=== PATIENT | female | born 1950 | race Caucasian/White ===

== ENCOUNTER 2017-02-27 04:59 | Inpatient (IN) | payer OTHER ==
[~2017-02-27] VITALS: Ht 170.2 cm; Wt 76.6 kg
[2017-02-27] MEDS ORDERED: MoRPHine SULFATE 4 MG/ML 1 ML CARP\\VIAL IV STA (05:22)
[2017-02-27] MEDS ORDERED: ONDANSETRON INJ 2 MG/ML 2 ML VIAL IV STA (05:22)
--- NOTE | 2017-02-27 05:24 | EMERGENCY ROOM VISIT NOTE ---
History Report prepared by Yifan: Saurabh Baird Under the Supervision of: Dr. Panfilo Gustafson D.O. First contact with patient: 05:07 Chief Complaint: ABDOMINAL PAIN Stated Complaint: SEVERE MID STOMACH PAIN History of Present Illness The patient is a 66 year old female who presents to the Emergency Room with complaints of constant epigastric abdominal pain that began Saturday night, just over one day prior to arrival. She rates her pain as a 7/10 in severity currently. The patient also notes that she has vomited multiple times secondary to her abdominal pain. She denies any history of abdominal issues or surgeries. 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 A total of ten systems were reviewed and were otherwise negative. Past Medical & Surgical Patient denies any past medical surgical history. Family History No pertinent family history secondary to age. Social History Smoking Status: Never Smoker Drug Use: none Marital Status: Housing Status: lives with significant other Occupation Status: unemployed Current/Historical Medications Scheduled Atorvastatin (Lipitor), 10 MG PO DAILY Losartan Potassium (Cozaar), 50 MG PO DAILY Omeprazole (Prilosec), 40 MG PO DAILY Allergies Coded Allergies: No Known Allergies (Unverified , 02/27/17) Physical Exam Vital Signs Date Time Temp Pulse Resp B/P (MAP) Pulse Ox O2 Delivery O2 Flow Rate FiO2 02/27/17 05:53 101 18 163/88 94 Room Air 02/27/17 05:38 100 02/27/17 05:33 105 20 171/101 93 Room Air 02/27/17 05:10 36.5 112 18 169/94 98 Room Air Physical Exam GENERAL: Awake, alert, well-appearing, in no distress HENT: Normocephalic, atraumatic. Oropharynx unremarkable. EYES: Normal conjunctiva. Sclera non-icteric. NECK: Supple. No nuchal rigidity. FROM. No JVD. RESPIRATORY: Clear to auscultation. CARDIAC: Regular rate, normal rhythm. Extremities warm and well perfused. Pulses equal. ABDOMEN: Soft, non-distended. With tenderness to palpation in the mid epigastrium. No rebound or guarding. No masses. NO abnormal aortic pulsations or masses. RECTAL: Deferred. MUSCULOSKELETAL: Chest examination reveals no tenderness. The back is symmetrical on inspection without obvious abnormality. There is no CVA tenderness to palpation. No joint edema. LOWER EXTREMITIES: Calves are equal size bilaterally and non-tender. No edema. No discoloration. NEURO: Normal sensorium. No sensory or motor deficits noted. SKIN: No rash or jaundice noted. Medical Decision & Procedures ER Provider Diagnostic Interpretation: X ray results as stated below per my interpretation and radiologist interpretation. Other radiology results as stated below per my review and radiologist interpretation CT ABDOMEN & PELVIS: Gallbladder appears distended with suspected wal thickening and pericholecystic inflammatory change. Correlate for cholecystitis. Infiltration/mild fluid in the right upper quadrant layers over right retroperitoneum. Suggest correlation with pancreatic enzyme to evaluate for acute pancreatitis. There is also biliary dilation suspected both intra-and extra hepatic. Although no calcified choledocholithiasis or calcified gall stones seen there is a suspected vague density in the gallbladder and CBD which may represent stones and/or sludge. Choledocholithiasis is within the differential. Consider ultrasound and/or MRCP, as indicated. Trace free fluid. Nonobstructive left renal stone. No ureteral calculus or hydronephrosis. Adrenal hyperplasia/questionable nodularity at left adrenal gland. Small adenoma may be present. No evidence for appendicitis. Hiatal hernia. Suspected atelectasis and/or scar. Correlate for mild infiltrate. Laboratory Results 02/27/17 05:20 Red Blood Count 4.86, Mean Corpuscular Volume 82.3, Mean Corpuscular Hemoglobin 27.6, Mean Corpuscular Hemoglobin Concent 33.5, Mean Platelet Volume 10.7, Neutrophils (%) (Auto) 88.2, Lymphocytes (%) (Auto) 5.2, Monocytes (%) (Auto) 6.2, Eosinophils (%) (Auto) 0.0, Basophils (%) (Auto) 0.1, Neutrophils # (Auto) 11.32, Lymphocytes # (Auto) 0.67, Monocytes # (Auto) 0.80, Eosinophils # (Auto) 0.00, Basophils # (Auto) 0.01 02/27/17 05:20 Test 02/27/17 05:14 02/27/17 05:20 Urine Color DK YELLOW Urine Appearance CLEAR (CLEAR) Urine pH 6.5 (4.5-7.5) Urine Specific [place] 1.033 (1.000-1.030) Urine Protein 2+ (NEG) Urine Glucose (UA) 2+ (NEG) Urine Ketones NEG (NEG) Urine Occult Blood 2+ (NEG) Urine Nitrite POS (NEG) Urine Bilirubin 3+ (NEG) Urine Urobilinogen NEG (NEG) Urine Leukocyte Esterase TRACE (NEG) Urine WBC (Auto) 1-5 /hpf (0-5) Urine RBC (Auto) >30 /hpf (0-4) Urine Hyaline Casts (Auto) 1-5 /lpf (0-5) Urine Epithelial Cells (Auto) 20-30 /lpf (0-5) Urine Bacteria (Auto) NEG (NEG) White Blood Count 12.84 K/uL (4.8-10.8) Red Blood Count 4.86 M/uL (4.2-5.4) Hemoglobin 13.4 g/dL (12.0-16.0) Hematocrit 40.0 % (37-47) Mean Corpuscular Volume 82.3 fL (80-100) Mean Corpuscular Hemoglobin 27.6 pg (25-34) Mean Corpuscular Hemoglobin Concent 33.5 g/dl (32-36) Platelet Count 365 K/uL (130-400) Mean Platelet Volume 10.7 fL (7.4-10.4) Neutrophils (%) (Auto) 88.2 % Lymphocytes (%) (Auto) 5.2 % Monocytes (%) (Auto) 6.2 % Eosinophils (%) (Auto) 0.0 % Basophils (%) (Auto) 0.1 % Neutrophils # (Auto) 11.32 K/uL (1.4-6.5) Lymphocytes # (Auto) 0.67 K/uL (1.2-3.4) Monocytes # (Auto) 0.80 K/uL (0.11-0.59) Eosinophils # (Auto) 0.00 K/uL (0-0.5) Basophils # (Auto) 0.01 K/uL (0-0.2) RDW Standard Deviation 44.1 fL (36.4-46.3) RDW Coefficient of Variation 14.6 % (11.5-14.5) Immature Granulocyte % (Auto) 0.3 % Immature Granulocyte # (Auto) 0.04 K/uL (0.00-0.02) Prothrombin Time 10.4 SECONDS (9.0-12.0) Prothromb Time International Ratio 1.0 (0.9-1.1) Anion Gap 11.0 mmol/L (3-11) Est Creatinine Clear Calc Drug Dose 52.2 ml/min Estimated GFR () 59.7 Estimated GFR (Non- 51.5 BUN/Creatinine Ratio 11.4 (10-20) Calcium Level 9.1 mg/dl (8.5-10.1) Total Bilirubin 3.3 mg/dl (0.2-1) Direct Bilirubin 2.5 mg/dl (0-0.2) Aspartate Amino Transf (AST/SGOT) 723 U/L (15-37) Alanine Aminotransferase (ALT/SGPT) 1278 U/L (12-78) Alkaline Phosphatase 988 U/L (45-117) Total Protein 7.8 gm/dl (6.4-8.2) Albumin 3.6 gm/dl (3.4-5.0) Lipase 14390 U/L (73-393) Laboratory results reviewed by me Medications Administered Medications (Trade) Dose Ordered Sig/Afshan Route Start Time Stop Time Status Last Admin Dose Admin Morphine Sulfate (MoRPHine SULFATE INJ) 4 mg NOW STAT IV 02/27/17 05:22 02/27/17 05:24 DC 02/27/17 05:30 4 MG Ondansetron HCl (Zofran Inj) 4 mg NOW STAT IV 02/27/17 05:22 02/27/17 05:24 DC 02/27/17 05:29 4 MG Piperacillin Sod/ Tazobactam Sod (Zosyn Iv) 4.5 gm NOW STAT IV 02/27/17 06:05 02/27/17 06:07 DC 02/27/17 06:05 4.5 GM Metronidazole (Flagyl / Nss) 500 mg NOW STAT IV 02/27/17 06:05 02/27/17 06:07 DC 02/27/17 06:05 500 MG Hydromorphone HCl (Dilaudid Inj) 1 mg NOW STAT IV 02/27/17 06:12 02/27/17 06:14 DC 02/27/17 06:31 1 MG ECG Indication: abdominal pain Rate (beats per minute): 103 Rhythm: sinus tachycardia Findings: no acute ischemic change, other (Normal interval, normal axis) ED Course 0514: The patient was evaluated in room B10. A complete history and physical exam was performed. 0522: Ordered Zofran 4 mg IV, Morphine Sulfate 4 mg IV. 0605: Ordered Zosyn 4.5 gm IV. 06: Ordered Dilaudid 1 mg IV. 0628: I discussed the case with Dr. Xochitl CALI Hospitalist, he will evaluate the patient for further treatment. Medical Decision Differential diagnosis includes: Gastritis, gastroenteritis, colitis, cholecystitis, AAA, and bowel obstruction. Patient given IV fluids, IV pain medicine IV nausea medicine IV antibiotics. Patient on reexamination complaints of 5 out of 10 midepigastric pain she clearly has a pancreatitis as well as transaminitis potential for gallbladder issue. Patient will be started on IV antibiotics and continued pain medicine and kept nothing by mouth. Case will be discussed with the hospitalist for admission with likely GI and surgical consultations. Consults Time Called: [phone] Consulting Physician: Dr. Xochitl CALI Hospitalist Returned Call: [phone] I discussed the case with Dr. Xochitl CALI Hospitalist, he will evaluate the patient for further treatment. Impression Primary Impression: Pancreatitis Additional Impressions: Transaminitis Hyperbilirubinemia Scribe Attestation The scribe's documentation has been prepared under my direction and personally reviewed by me in its entirety. I confirm that the note above accurately reflects all work, treatment, procedures, and medical decision making performed by me. Departure Information Dispostion Being Evaluated By Hospitalist Referrals Kimberlyn Granger PA-C (PCP) Patient Instructions My [facility] Problem Qualifiers
[2017-02-27 05:28] LABS: URINE APPEARANCE CLEAR (CLEAR); URINE COLOR DK YELLOW; URINE EPITHELIAL CELL AUTO 20-30 /lpf (0-5); URINE NITRITE POS (NEG); URINE PH 6.5 (4.5-7.5); URINE SPECIFIC GRAVITY 1.033 (1.000-1.030); UROBILINOGEN NEG (NEG); ZZUR CULT IF INDIC CLEAN CATCH NO
[2017-02-27 05:32] LABS: MANUAL MICROSCOPIC REQUIRED? NO; REVIEW REQ? NO; URINE BILIRUBIN 3+ (NEG)
[2017-02-27 05:33] LABS: BASO % 0.1 %; BASO ABS # 0.01 K/uL (0-0.2); COMPLETE YES; IG% 0.3 %; LYMPH % 5.2 %; LYMPH ABS # 0.67 K/uL (1.2-3.4); MEAN CELL VOLUME 82.3 fL (80-100); MEAN CORPUSCULAR HEMOGLOBIN 27.6 pg (25-34); MEAN CORPUSCULAR HGB CONC 33.5 g/dl (32-36); MEAN PLATELET VOLUME 10.7 fL (7.4-10.4); MONO % 6.2 %; NEUT % 88.2 %; PLATELET COUNT 365 K/uL (130-400); RED BLOOD COUNT 4.86 M/uL (4.2-5.4); WHITE BLOOD COUNT 12.84 K/uL (4.8-10.8)
[2017-02-27 05:41] LABS: PROTHROMBIN TIME (PATIENT) 10.4 SECONDS (9.0-12.0)
[2017-02-27 05:51] LABS: BUN/CREATININE RATIO 11.4 (10-20); CALCIUM 9.1 mg/dl (8.5-10.1); CREATININE 1.1 mg/dl (0.60-1.20); POTASSIUM 3.8 mmol/L (3.5-5.1)
[2017-02-27] MEDS ORDERED: PIPERACILLIN/TAZOBACTAM 4.5 GM/100ML D5W IV STA (06:05)
[2017-02-27] MEDS ORDERED: METRONIDAZOLE 500MG / 100ML NSS IV STA (06:05)
[2017-02-27] MEDS ORDERED: HYDROmorphone INJ 1 MG/ML SYR IV STA (06:12)
[2017-02-27] MEDS ORDERED: ATOR10TA82 PO (06:17)
[2017-02-27] MEDS ORDERED: OMEP40CA41 PO (06:17)
[2017-02-27] MEDS ORDERED: LOSA50TA6 PO (06:17)
[2017-02-27] MEDS ORDERED: ONDANSETRON INJ 2 MG/ML 2 ML VIAL IV PRN ×2 (06:45→10:00)
[2017-02-27] MEDS ORDERED: HYDROmorphone INJ 1 MG/ML SYR IV PRN (06:45)
--- NOTE | 2017-02-27 06:56 | History and Physical ---
History & Physical Date & Time of Service: Feb 27, 2017 at 06:44 Chief Complaint: Severe Mid Stomach Pain Primary Care Physician: Ihsan Sharp M.D. History of Present Illness Source: patient, spouse 66-year-old female with a past medical history of hypertension, GERD presented to the ER with complaints of abdominal pain which started about 2 days ago. She stated that her pain started Monday night, has been intermittent, 9 on 10 in severity. The pain is mainly in the mid abdominal area without any radiation. The patient stated that she has been experiencing intermittent abdominal pain for about a month now. Complains of nausea and several episodes of vomiting. Denies diarrhea, constipation, bright red bleeding per rectum or melena. Denies any fevers or chills. Denies any urinary complaints. Denies any chest pain, shortness of breath, palpitations, dizziness Past Medical/Surgical History Hypertension Reflux Family History Hypertension, diabetes Social History Smoking Status: Never Smoker Drug Use: none Marital Status: Occupational Status: unemployed Allergies Coded Allergies: No Known Allergies (Unverified , 02/27/17) Home Medications Scheduled Atorvastatin (Lipitor), 10 MG PO DAILY Losartan Potassium (Cozaar), 50 MG PO DAILY Omeprazole (Prilosec), 40 MG PO DAILY Review of Systems Constitutional: No fever, No chills Eyes: No worsening of vision ENT: No hearing loss Respiratory: No cough, No sputum, No shortness of breath Cardiovascular: No chest pain, No orthopnea Abdomen: + pain (mid abdominal area), + nausea, + vomiting, No diarrhea, No constipation Musculoskeletal: No joint pain Genitourinary - Female: No dysuria, No urinary frequency, No urinary urgency Neurologic: No memory loss Psychiatric: No depression symptoms Endocrine: No fatigue Hematologic / Lymphatic: No abnormal bleeding/bruising Integumentary: No rash Physical Exam Vital Signs Date Time Temp Pulse Resp B/P (MAP) Pulse Ox O2 Delivery O2 Flow Rate FiO2 02/27/17 06:31 102 20 160/82 95 Room Air 02/27/17 05:53 101 18 163/88 94 Room Air 02/27/17 05:38 100 02/27/17 05:33 105 20 171/101 93 Room Air 02/27/17 05:10 36.5 112 18 169/94 98 Room Air General Appearance: WD/WN, + mild distress Head: normocephalic Eyes: normal inspection ENT: hearing grossly normal Neck: supple Respiratory/Chest: chest non-tender, lungs clear, normal breath sounds, no respiratory distress, no accessory muscle use Cardiovascular: regular rate, rhythm Abdomen/GI: normal bowel sounds, soft Back: normal inspection Neurologic/Psych: alert, normal mood/affect, oriented x 3 Skin: normal color Diagnostics Laboratory Results Results Past 24 Hours Test 02/27/17 05:14 02/27/17 05:20 Range/Units Urine Color DK YELLOW Urine Appearance CLEAR CLEAR Urine pH 6.5 4.5-7.5 Urine Specific [place] 1.033 1.000-1.030 Urine Protein 2+ NEG Urine Glucose (UA) 2+ NEG Urine Ketones NEG NEG Urine Occult Blood 2+ NEG Urine Nitrite POS NEG Urine Bilirubin 3+ NEG Urine Urobilinogen NEG NEG Urine Leukocyte Esterase TRACE NEG Urine WBC (Auto) 1-5 0-5 /hpf Urine RBC (Auto) >30 0-4 /hpf Urine Hyaline Casts (Auto) 1-5 0-5 /lpf Urine Epithelial Cells (Auto) 20-30 0-5 /lpf Urine Bacteria (Auto) NEG NEG White Blood Count 12.84 4.8-10.8 K/uL Red Blood Count 4.86 4.2-5.4 M/uL Hemoglobin 13.4 12.0-16.0 g/dL Hematocrit 40.0 37-47 % Mean Corpuscular Volume 82.3 80-100 fL Mean Corpuscular Hemoglobin 27.6 25-34 pg Mean Corpuscular Hemoglobin Concent 33.5 32-36 g/dl Platelet Count 365 130-400 K/uL Mean Platelet Volume 10.7 7.4-10.4 fL Neutrophils (%) (Auto) 88.2 % Lymphocytes (%) (Auto) 5.2 % Monocytes (%) (Auto) 6.2 % Eosinophils (%) (Auto) 0.0 % Basophils (%) (Auto) 0.1 % Neutrophils # (Auto) 11.32 1.4-6.5 K/uL Lymphocytes # (Auto) 0.67 1.2-3.4 K/uL Monocytes # (Auto) 0.80 0.11-0.59 K/uL Eosinophils # (Auto) 0.00 0-0.5 K/uL Basophils # (Auto) 0.01 0-0.2 K/uL RDW Standard Deviation 44.1 36.4-46.3 fL RDW Coefficient of Variation 14.6 11.5-14.5 % Immature Granulocyte % (Auto) 0.3 % Immature Granulocyte # (Auto) 0.04 0.00-0.02 K/uL Prothrombin Time 10.4 9.0-12.0 SECONDS Prothromb Time International Ratio 1.0 0.9-1.1 Sodium Level 141 136-145 mmol/L Potassium Level 3.8 3.5-5.1 mmol/L Chloride Level 103 98-107 mmol/L Carbon Dioxide Level 27 21-32 mmol/L Anion Gap 11.0 3-11 mmol/L Blood Urea Nitrogen 13 7-18 mg/dl Creatinine 1.10 0.60-1.20 mg/dl Est Creatinine Clear Calc Drug Dose 52.2 ml/min Estimated GFR () 59.7 Estimated GFR (Non- 51.5 BUN/Creatinine Ratio 11.4 10-20 Random Glucose 174 70-99 mg/dl Calcium Level 9.1 8.5-10.1 mg/dl Total Bilirubin 3.3 0.2-1 mg/dl Direct Bilirubin 2.5 0-0.2 mg/dl Aspartate Amino Transf (AST/SGOT) 723 15-37 U/L Alanine Aminotransferase (ALT/SGPT) 1278 12-78 U/L Alkaline Phosphatase 988 45-117 U/L Total Protein 7.8 6.4-8.2 gm/dl Albumin 3.6 3.4-5.0 gm/dl Lipase 47732 73-393 U/L Diagnostic Radiology Gallbladder appears distended with suspected wal thickening and pericholecystic inflammatory change. Correlate for cholecystitis. Infiltration/mild fluid in the right upper quadrant layers over right retroperitoneum. Suggest correlation with pancreatic enzyme to evaluate for acute pancreatitis. There is also biliary dilation suspected both intra-and extra hepatic. Although no calcified choledocholithiasis or calcified gall stones seen there is a suspected vague density in the gallbladder and CBD which may represent stones and/or sludge. Choledocholithiasis is within the differential. Consider ultrasound and/or MRCP, as indicated. Trace free fluid. Nonobstructive left renal stone. No ureteral calculus or hydronephrosis. Adrenal hyperplasia/questionable nodularity at left adrenal gland. Small adenoma may be present. No evidence for appendicitis. Hiatal hernia. Suspected atelectasis and/or scar. Correlate for mild infiltrate. EKG Sinus tachycardia Impression Assessment and Plan 66-year-old female with a past medical history of hypertension, GERD presented to the ER with complaints of abdominal pain which started about 2 days ago. Abdominal pain has been intermittent for about a month now. Associated with nausea and vomiting. Acute cholecystitis: - CT scan suggestive of acute cholecystitis with intrahepatic and extrahepatic biliary dilation and pancreatitis - Nothing by mouth - Continue IV fluids - Unasyn - Consult general surgery. [place]itis : [place] [address], trend lipases daily - Nothing by mouth - Continue IV fluids, LR at 100 mls/hr - Pain control with Dilaudid as needed - Gastroenterology consult Hypertension: Losartan currently held Hyperlipidemia: Atorvastatin currently held DVT prophylaxis -SCDs - Chemical anticoagulation currently held in anticipation of surgical procedure Full code Disposition: Admitted to [facility] Level of Care Med/Surg Resuscitation Status FULL RESUSCITATION VTE Prophylaxis VTE Risk Assessment Done? Y/N: Yes Risk Level: Moderate Given or contraindicated: SCD's Resident Tracking Resident Involvement: Resident Care Provided Care Provided: Adult Hospital Medicine
--- NOTE | 2017-02-27 06:57 | Progress Note ---
Progress Note Date of Service Feb 27, 2017. Progress Note Addendum to resident: Pt seen/examined independently and plan/orders formulated with resident 66 y/o F who denies a significant med history presenting with acute, persistent upper abdominal pain. One episode of vomiting after taking PO analgesics. CT obtained in ER consistent with cholecystitis, pancreatitis and dilated CBD. OE AAO x 3 S1,2 R CTAB + upper quadrant tenderness No CCE P: IVF, Narcotics, NPO, antibiotics Consult placed to gen surgery and GI
--- NOTE | 2017-02-27 07:35 | DIAGNOSTIC IMAGING REPORT ---
ABDOMEN AND PELVIS CT WITHOUT CONTRAST CT DOSE: 918.20 mGy.cm HISTORY: Epigastric pain TECHNIQUE: Multiaxial CT images of the abdomen and pelvis were performed without the use of intravenous and oral contrast according to the standard department stone protocol. COMPARISON STUDY: None. FINDINGS: Moderate hiatus hernia. Bibasilar densities are nonspecific but favor atelectasis. No hepatic or splenic masses. Mild peripancreatic inflammatory change consistent with acute pancreatitis. There are 2 focal areas of increased density at the distal common bile duct which measure up to 8 mm. These are consistent with distal common bile duct stones. There is associated intra and extrahepatic bile duct dilatation with the common bile duct measuring up to 14 mm. The gallbladder is distended and there is mild gallbladder wall thickening. There is a small amount of pericholecystic fluid/inflammatory change. Probable small stones/sludge within the gallbladder. Mild thickening within the left adrenal gland. Small stone within the left kidney. Normal right kidney. No hydronephrosis. Normal bladder, uterus, and ovaries. No evidence for bowel obstruction. A few colonic diverticula. Normal appendix. IMPRESSION: 1. Distal common bile duct stones with associated intra and hepatic bile duct dilatation. 2. Mild acute pancreatitis. 3. There appear to be a few small stones/sludge within the gallbladder. The gallbladder to mildly distended and there is mild gallbladder wall thickening with pericholecystic inflammatory change/fluid. This may also represent an acute cholecystitis. Electronically signed by: Juan Daniel Orosco M.D. 02/27/2017 7:34 AM Dictated Date/Time: 02/27/2017 7:28 AM
[2017-02-27 07:54] VITALS: BP 148/76; PULSE 98; TEMP 36.8; O2SAT 91
[2017-02-27] MEDS: LACTATED RINGER'S 1000ML 1,000 ML IV SCH ×4 (09:52→21:04)
[2017-02-27] MEDS ORDERED: SODIUM CHLORIDE 0.9% 1000ML 1,000 ML IV SCH (09:57)
[2017-02-27] MEDS ORDERED: HYDR-5688 PO (09:59)
[2017-02-27] MEDS ORDERED: HYDROCODONE/ACETAMOPHEN 5/325MG TAB PO PRN ×2 (10:00)
--- NOTE | 2017-02-27 10:29 | Surgery Consultation ---
Consultation Date of Consultation: Feb 27, 2017. Attending Physician: Сергей Leung M.D. History of Present Illness 2 day history of epigastric abdominal pain and nausea with emesis. has not been feeling that great overall for almost 1 month now. no weightloss/fever etc...actually feeling better at the moment of exam Past Medical/Surgical History Medical Problems: (1) Hyperbilirubinemia Status: Acute (2) Pancreatitis Status: Acute (3) Transaminitis Status: Acute Social History Smoking Status: Never Smoker Drug Use: none Marital Status: Housing Status: lives with significant other Occupation Status: unemployed Allergies Coded Allergies: No Known Allergies (Unverified , 02/27/17) Home Medications Scheduled Atorvastatin (Lipitor), 10 MG PO DAILY Losartan Potassium (Cozaar), 50 MG PO DAILY Omeprazole (Prilosec), 40 MG PO DAILY Scheduled PRN Hydrocodone/Acetaminophen 5MG/325MG ([place] 5MG/325MG), 1-2 TABLETS PO Q4 PRN for Pain Current Inpatient Medications Current Inpatient Medications Medications (Trade) Dose Ordered Sig/Afshan Route Start Time Stop Time Status Last Admin Dose Admin Acetaminophen (Tylenol Tab) 650 mg Q4H PRN PO 02/27/17 06:45 03/29/17 06:44 Ondansetron HCl (Zofran Inj) 4 mg Q6H PRN IV 02/27/17 06:45 03/29/17 06:44 Ampicillin Sodium/ Sulbactam Sodium 1500 mg/Sodium Chloride 104 ml @ 200 mls/hr Q6H IV 02/27/17 12:00 03/09/17 11:59 Lactated Ringer's 1,000 ml @ 100 mls/hr Q10H IV 02/27/17 06:45 03/29/17 06:44 02/27/17 09:52 100 MLS/HR Hydromorphone HCl (Dilaudid Inj) 1 mg Q4H PRN IV 02/27/17 06:45 03/13/17 06:44 Review of Systems Abdomen: + pain, + nausea, + vomiting Physical Exam Date Time Temp Pulse Resp B/P (MAP) Pulse Ox O2 Delivery O2 Flow Rate FiO2 02/27/17 07:54 36.8 98 18 148/76 (100) 91 Room Air 02/27/17 07:26 98 18 139/79 97 6/12/17 06:49 102 02/27/17 06:31 102 20 160/82 95 Room Air 02/27/17 05:53 101 18 163/88 94 Room Air 02/27/17 05:38 100 02/27/17 05:33 105 20 171/101 93 Room Air 02/27/17 05:10 36.5 112 18 169/94 98 Room Air General Appearance: no apparent distress Head: normocephalic, atraumatic Eyes: normal inspection, EOMI ENT: hearing grossly normal Neck: supple, no JVD Respiratory/Chest: no respiratory distress, no accessory muscle use Abdomen/GI: soft, + pertinent finding (mild epigastric and RUQ ttp. ) Neurologic/Psych: alert, oriented x 3 Skin: normal color, warm/dry Laboratory Results Last 24 Hours Test 02/27/17 05:14 02/27/17 05:20 Urine Color DK YELLOW Urine Appearance CLEAR Urine pH 6.5 Urine Specific [place] 1.033 Urine Protein 2+ Urine Glucose (UA) 2+ Urine Ketones NEG Urine Occult Blood 2+ Urine Nitrite POS Urine Bilirubin 3+ Urine Urobilinogen NEG Urine Leukocyte Esterase TRACE Urine WBC (Auto) 1-5 /hpf Urine RBC (Auto) >30 /hpf Urine Hyaline Casts (Auto) 1-5 /lpf Urine Epithelial Cells (Auto) 20-30 /lpf Urine Bacteria (Auto) NEG White Blood Count 12.84 K/uL Red Blood Count 4.86 M/uL Hemoglobin 13.4 g/dL Hematocrit 40.0 % Mean Corpuscular Volume 82.3 fL Mean Corpuscular Hemoglobin 27.6 pg Mean Corpuscular Hemoglobin Concent 33.5 g/dl Platelet Count 365 K/uL Mean Platelet Volume 10.7 fL Neutrophils (%) (Auto) 88.2 % Lymphocytes (%) (Auto) 5.2 % Monocytes (%) (Auto) 6.2 % Eosinophils (%) (Auto) 0.0 % Basophils (%) (Auto) 0.1 % Neutrophils # (Auto) 11.32 K/uL Lymphocytes # (Auto) 0.67 K/uL Monocytes # (Auto) 0.80 K/uL Eosinophils # (Auto) 0.00 K/uL Basophils # (Auto) 0.01 K/uL RDW Standard Deviation 44.1 fL RDW Coefficient of Variation 14.6 % Immature Granulocyte % (Auto) 0.3 % Immature Granulocyte # (Auto) 0.04 K/uL Prothrombin Time 10.4 SECONDS Prothromb Time International Ratio 1.0 Sodium Level 141 mmol/L Potassium Level 3.8 mmol/L Chloride Level 103 mmol/L Carbon Dioxide Level 27 mmol/L Anion Gap 11.0 mmol/L Blood Urea Nitrogen 13 mg/dl Creatinine 1.10 mg/dl Est Creatinine Clear Calc Drug Dose 52.2 ml/min Estimated GFR () 59.7 Estimated GFR (Non- 51.5 BUN/Creatinine Ratio 11.4 Random Glucose 174 mg/dl Calcium Level 9.1 mg/dl Total Bilirubin 3.3 mg/dl Direct Bilirubin 2.5 mg/dl Aspartate Amino Transf (AST/SGOT) 723 U/L Alanine Aminotransferase (ALT/SGPT) 1278 U/L Alkaline Phosphatase 988 U/L Total Protein 7.8 gm/dl Albumin 3.6 gm/dl Lipase 07812 U/L Assessment & Plan 1. gallstone pancreatitis with cholecystitis and elevated LFT's. pt stable lipase over 13,000 rec lap idalmis this admission NPO/IVF/supportive care follow LFT's/pancreatic enzymes will plan lap idalmis later in week after ERCP will follow along closely.
[2017-02-27 11:14] VITALS: BP 148/76; PULSE 98; TEMP 36.8; O2SAT 91; Ht 170.2 cm; Wt 76.6 kg
--- NOTE | 2017-02-27 12:38 | Gastrointestinal Consultation ---
Gastrointestinal Consultation Date of Consultation: Feb 27, 2017 Attending Physician: Dr. Leung (consult from Dr. Carias) Consulting Physician: Dr. Denise Cancino Reason for Consultation: Acute pancreatitis History of Present Illness Patient is a 66 year old female patient of Dr. Sharp/Alma Granger PA-C who presented to [facility] ED yesterday for abdominal pain. GI is consulted for acute pancreatitis. Ms. Benavides carries a hx of GERD, HTN, Hyperlipidemia. 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 In the past month, she had intermittent episodes of epigastric pain, lasting up to a day long. On Monday, she ate pizza and cake for supper. That night, she began with mid abdomen pain that persisted and worsened through yesterday. With the pain, she has had nausea/vomiting and dry heaving. She denies any fevers, chills, jaundice, icterus, dark urine or linda colored stools. On arrival, lipase was elevated at 13,34, AST 723, ALT 1278, ALk Phos 988. CT scan suggestive of acute cholecystitis, mild pancreatitis, CBD stones and dilation to 14mm. She is being covered with Unasyn 1500mg Q 6hrs. She has been afebrile. Past Medical/Surgical History Medical Problems: (1) Hyperbilirubinemia Status: Acute (2) Pancreatitis Status: Acute (3) Transaminitis Status: Acute Past Medical History: 1. GERD 2. HTN 3. Hyperlipidemia Past Surgical History: No prior surgeries. Social History Smoking Status: Never Smoker Drug Use: none Marital Status: Housing Status: lives with significant other Occupation Status: unemployed Allergies Coded Allergies: No Known Allergies (Unverified , 02/27/17) Current Medications Home Meds and Scripts Medications Dose Route/Sig Max Daily Dose Days Date Category [place] 5MG/325MG (Acetaminophen/Hydrocodone Bitart) Tab 1-2 Tablets PO Q4 PRN 3 02/27/17 Rx Cozaar (Losartan Potassium) 50 Mg Tab 50 Mg PO DAILY 02/27/17 Reported Prilosec (Omeprazole) 40 Mg Cap 40 Mg PO DAILY 02/27/17 Reported Lipitor (Atorvastatin Calcium) 10 Mg Tab 10 Mg PO DAILY 02/27/17 Reported Review of Systems Constitutional: No fever, No chills, No sweats, No weight loss, No weakness Eyes: No eye pain, No redness ENT: No sore throat, No trouble swallowing, No pain on swallowing Respiratory: No cough, No wheezing, No shortness of breath, No dyspnea on exertion Cardiac: No chest pain, No edema, No palpitations Abdomen: + see HPI, + pain, + nausea, + vomiting, No diarrhea, No constipation , No GI bleeding, No dysphagia, No odynophagia, No acolic stools, No jaundice, No dark urine Neuro: No memory loss, No weakness, No numbness/tingling, No vertigo, No balance problems Psych: No depression symptoms, No anxiety, No insomnia Heme: No abnormal bleeding/bruising, No night sweats Endo: No fatigue, No excessive thirst, No excessive urination Skin: No rash, No itch, No new/changing skin lesions, No jaundice Physical Exam Date Time Temp Pulse Resp B/P (MAP) Pulse Ox O2 Delivery O2 Flow Rate FiO2 02/27/17 11:14 36.8 98 18 148/76 91 Room Air 02/27/17 07:54 36.8 98 18 148/76 (100) 91 Room Air 02/27/17 07:26 98 18 139/79 97 02/27/17 06:49 102 02/27/17 06:31 102 20 160/82 95 Room Air 02/27/17 05:53 101 18 163/88 94 Room Air 02/27/17 05:38 100 02/27/17 05:33 105 20 171/101 93 Room Air 02/27/17 05:10 36.5 112 18 169/94 98 Room Air General Appearance: no apparent distress Eyes: normal inspection, EOMI Neck: supple, no adenopathy, thyroid normal Respiratory/Chest: chest non-tender, lungs clear, normal breath sounds, no accessory muscle use Cardiovascular: regular rate, rhythm, no JVD, no murmur Abdomen: normal bowel sounds, soft, no organomegaly, + tenderness (moderate epigastric tenderness) Extremities: normal inspection, no pedal edema, normal capillary refill Neurologic/Psych: alert, normal mood/affect, oriented x 3 Skin: normal color, no jaundice, warm/dry, no rash Laboratory Results Last 24 Hours Test 02/27/17 05:14 02/27/17 05:20 Urine Color DK YELLOW Urine Appearance CLEAR Urine pH 6.5 Urine Specific [place] 1.033 Urine Protein 2+ Urine Glucose (UA) 2+ Urine Ketones NEG Urine Occult Blood 2+ Urine Nitrite POS Urine Bilirubin 3+ Urine Urobilinogen NEG Urine Leukocyte Esterase TRACE Urine WBC (Auto) 1-5 /hpf Urine RBC (Auto) >30 /hpf Urine Hyaline Casts (Auto) 1-5 /lpf Urine Epithelial Cells (Auto) 20-30 /lpf Urine Bacteria (Auto) NEG White Blood Count 12.84 K/uL Red Blood Count 4.86 M/uL Hemoglobin 13.4 g/dL Hematocrit 40.0 % Mean Corpuscular Volume 82.3 fL Mean Corpuscular Hemoglobin 27.6 pg Mean Corpuscular Hemoglobin Concent 33.5 g/dl Platelet Count 365 K/uL Mean Platelet Volume 10.7 fL Neutrophils (%) (Auto) 88.2 % Lymphocytes (%) (Auto) 5.2 % Monocytes (%) (Auto) 6.2 % Eosinophils (%) (Auto) 0.0 % Basophils (%) (Auto) 0.1 % Neutrophils # (Auto) 11.32 K/uL Lymphocytes # (Auto) 0.67 K/uL Monocytes # (Auto) 0.80 K/uL Eosinophils # (Auto) 0.00 K/uL Basophils # (Auto) 0.01 K/uL RDW Standard Deviation 44.1 fL RDW Coefficient of Variation 14.6 % Immature Granulocyte % (Auto) 0.3 % Immature Granulocyte # (Auto) 0.04 K/uL Prothrombin Time 10.4 SECONDS Prothromb Time International Ratio 1.0 Sodium Level 141 mmol/L Potassium Level 3.8 mmol/L Chloride Level 103 mmol/L Carbon Dioxide Level 27 mmol/L Anion Gap 11.0 mmol/L Blood Urea Nitrogen 13 mg/dl Creatinine 1.10 mg/dl Est Creatinine Clear Calc Drug Dose 52.2 ml/min Estimated GFR () 59.7 Estimated GFR (Non- 51.5 BUN/Creatinine Ratio 11.4 Random Glucose 174 mg/dl Calcium Level 9.1 mg/dl Total Bilirubin 3.3 mg/dl Direct Bilirubin 2.5 mg/dl Aspartate Amino Transf (AST/SGOT) 723 U/L Alanine Aminotransferase (ALT/SGPT) 1278 U/L Alkaline Phosphatase 988 U/L Total Protein 7.8 gm/dl Albumin 3.6 gm/dl Lipase 06148 U/L Impression Patient is a 66 year old female with acute gallstone pancreatitis, choledocholithiasis. She has mild leukocytosis, suggestive of early cholangitis though does not have any other signs of infection. Plan 1. Agree with antibiotic coverage of cholangitis. 2. LR at 250cc/hr. 3. NPO except water po today. NPO after midnight. 4. ERCP discussed in detail including risks of perforation, pancreatitis. Though pt tells me that she is afraid of medical procedures, she has decided to go forward with the ERCP which is planned for tomorrow morning by Dr. Cancino. I saw and evalauted the patient with Ms. Lobo. She presented with gallstone pancreatitis, stones in CBD on CT scan. PE : mild icturus, no distress Impression: Gallstone pancreatitits, will plan for ERCP with gallstone extraction and possible stent placement. We have discussed the risks (bleeding , infection, perforation, pain, failed cannulation and need for f/u procedures) Plan ERCP arranged for monday Continue broad spectrum abx Contineu IV hydration Surgical consulation for cholecystectomy
[2017-02-27] MEDS: AMPICILLIN/SULBACTAM SOD INJ 1,500 MG in SODIUM CHLORIDE 0.9% 100ML 100 ML IV SCH ×3 (12:51→23:41)
--- NOTE | 2017-02-27 12:57 | Anesthesiology Progress Note ---
Anesthesia Progress Note Date of Service Feb 27, 2017. Progress Notes Pt is scheduled for ERCP on 02/28/17. Pt is 66F h/o HTN and GERD. She presented with abdominal pain and was found to have acute pancreatitis. Pt has improved. Her labwork and EKG have been reviewed. Pt is an acceptable candidate for general anesthesia. Consent was obtained from the pt. All questions/concerns were addressed.
--- NOTE | 2017-02-27 13:15 | Hospitalist Progress Note ---
Hospitalist Progress Note Date of Service Feb 27, 2017. (Anjana Hill PA-C) Subjective Pt evaluation today including: conversation w/ patient, physical exam, chart review, lab review, review of studies Pain: Minimal upper abdominal PO Intake: NPO Voiding: no voiding problems The patient was seen and examined this morning. Pt reports doing better since this morning. She is NPO but was told is allowed to have sips of water per Gen Surg. She denies nausea and vomiting. Last time she ate was on monday night. Additional Comments: ROS: 6 point ROS reviewed and otherwise negative. (Anjana Hill PA-C) Objective Vital Signs Date Time Temp Pulse Resp B/P (MAP) Pulse Ox O2 Delivery O2 Flow Rate FiO2 02/27/17 11:14 36.8 98 18 148/76 91 Room Air 02/27/17 07:54 36.8 98 18 148/76 (100) 91 Room Air 02/27/17 07:26 98 18 139/79 97 02/27/17 06:49 102 02/27/17 06:31 102 20 160/82 95 Room Air 02/27/17 05:53 101 18 163/88 94 Room Air 02/27/17 05:38 100 02/27/17 05:33 105 20 171/101 93 Room Air 02/27/17 05:10 36.5 112 18 169/94 98 Room Air (Anjana Hill PA-C) Physical Exam General Appearance: WD/WN, no apparent distress, + pertinent finding (appears a little anxious) Eyes: PERRL, EOMI ENT: hearing grossly normal, pharynx normal Neck: supple, no JVD Respiratory/Chest: no respiratory distress, no accessory muscle use, + pertinent finding (breath sounds slightly diminished at bases. No wheezing, rales or rhonchi.) Cardiovascular: regular rate, rhythm, no JVD, no murmur Abdomen: soft, no organomegaly, + pertinent finding (hypoactive bowel sounds, mild tenderness with palpation in the epigastric region, no rebound tenderness or guarding) Extremities: non-tender, normal inspection, no pedal edema, no calf tenderness Neurologic/Psychiatric: alert, normal mood/affect, oriented x 3 Skin: normal color, warm/dry (Anjana Hill PA-C) Laboratory Results Last 24 Hours Test 02/27/17 05:14 02/27/17 05:20 Urine Color DK YELLOW Urine Appearance CLEAR Urine pH 6.5 Urine Specific [place] 1.033 Urine Protein 2+ Urine Glucose (UA) 2+ Urine Ketones NEG Urine Occult Blood 2+ Urine Nitrite POS Urine Bilirubin 3+ Urine Urobilinogen NEG Urine Leukocyte Esterase TRACE Urine WBC (Auto) 1-5 /hpf Urine RBC (Auto) >30 /hpf Urine Hyaline Casts (Auto) 1-5 /lpf Urine Epithelial Cells (Auto) 20-30 /lpf Urine Bacteria (Auto) NEG White Blood Count 12.84 K/uL Red Blood Count 4.86 M/uL Hemoglobin 13.4 g/dL Hematocrit 40.0 % Mean Corpuscular Volume 82.3 fL Mean Corpuscular Hemoglobin 27.6 pg Mean Corpuscular Hemoglobin Concent 33.5 g/dl Platelet Count 365 K/uL Mean Platelet Volume 10.7 fL Neutrophils (%) (Auto) 88.2 % Lymphocytes (%) (Auto) 5.2 % Monocytes (%) (Auto) 6.2 % Eosinophils (%) (Auto) 0.0 % Basophils (%) (Auto) 0.1 % Neutrophils # (Auto) 11.32 K/uL Lymphocytes # (Auto) 0.67 K/uL Monocytes # (Auto) 0.80 K/uL Eosinophils # (Auto) 0.00 K/uL Basophils # (Auto) 0.01 K/uL RDW Standard Deviation 44.1 fL RDW Coefficient of Variation 14.6 % Immature Granulocyte % (Auto) 0.3 % Immature Granulocyte # (Auto) 0.04 K/uL Prothrombin Time 10.4 SECONDS Prothromb Time International Ratio 1.0 Sodium Level 141 mmol/L Potassium Level 3.8 mmol/L Chloride Level 103 mmol/L Carbon Dioxide Level 27 mmol/L Anion Gap 11.0 mmol/L Blood Urea Nitrogen 13 mg/dl Creatinine 1.10 mg/dl Est Creatinine Clear Calc Drug Dose 52.2 ml/min Estimated GFR () 59.7 Estimated GFR (Non- 51.5 BUN/Creatinine Ratio 11.4 Random Glucose 174 mg/dl Calcium Level 9.1 mg/dl Total Bilirubin 3.3 mg/dl Direct Bilirubin 2.5 mg/dl Aspartate Amino Transf (AST/SGOT) 723 U/L Alanine Aminotransferase (ALT/SGPT) 1278 U/L Alkaline Phosphatase 988 U/L Total Protein 7.8 gm/dl Albumin 3.6 gm/dl Lipase 74712 U/L (Anjana Hill PA-C) Assessment and Plan 66yo F with PMHx of hypertension, GERD presented to the ER with complaints of abdominal pain which started about 2 days ago. Abdominal pain has been intermittent for about a month now. Associated with nausea and vomiting. Found to have acute cholecystitis and pancreatitis. Acute cholecystitis and pancreatitis - CT scan suggestive of acute cholecystitis with intrahepatic and extrahepatic biliary dilation and pancreatitis - GI and Gen surg consulted - NPO for ERCP tomorrow, will plan for cholecystectomy later in the week. - Lactated ringers running at 250mL/hr x 4 hours, then decrease to 100ml/hr for maintenance fluids again - Unasyn on board, [place] - [place] [id number], trend with am labs - Continue analgesia with Dilaudid 1 mg Q4H prn Hypertension: - Losartan 10 mg restarted today Hyperlipidemia: - Cont atorvastatin 20 mg QAM DVT prophylaxis -SCDs - Chemical anticoagulation currently held in anticipation of surgical procedure CODE STATUS: Full code Disposition: From home, ERCP tomorrow, cholecystectomy later this week, d/c in 2 days? (Anjana Hill PA-C) MATEO Physician Supervision Note: I interviewed and examined the patient. Discussed with Melissa Hill and agree with findings and plan as documented in the note. Any exceptions or clarifications are listed here: None pt with likely gall stone pancreatitis for possible procedure 02/28 symptoms are improved with parenteral pain meds and IVF vitals stable abd with soft , hypoactive bowel sounds, some ruq tenderness continue unasyn, surgery is evaluating for cholecystectomy Documented By: Yamil Finnegan (Yamil Finnegan M.D.)
[2017-02-27 15:25] VITALS: BP 157/78; PULSE 83; TEMP 36.7; O2SAT 95
[2017-02-27] MEDS: ACETAMINOPHEN 325 MG TAB PO PRN (16:34)
[2017-02-27] MEDS: LOSARTAN POTASSIUM 50 MG TAB PO SCH (18:04)
[2017-02-27] MEDS ORDERED: FAMOTIDINE IV INJ 20 MG in DEXTROSE 5% 100ML 100 ML IV SCH (21:30)
[2017-02-27 23:03] VITALS: BP 164/77; PULSE 82; TEMP 37; O2SAT 91
[2017-02-28] MEDS ORDERED: NURSING VERBAL MED ORDER ONE ×2 (00:15→22:00)
[2017-02-28] MEDS: LACTATED RINGER'S 1000ML 1,000 ML IV SCH ×3 (02:37→22:25)
[2017-02-28 03:18] VITALS: BP 160/76; PULSE 97; TEMP 37.3; O2SAT 94
[2017-02-28] MEDS: AMPICILLIN/SULBACTAM SOD INJ 1,500 MG in SODIUM CHLORIDE 0.9% 100ML 100 ML IV SCH ×4 (05:37→23:59)
[2017-02-28] MEDS ORDERED: EpHEDrine SULFATE INJ 50 MG/ML AMP IV PRN (06:45)
[2017-02-28] MEDS ORDERED: ATROPINE SULFATE 0.1 MG/ML 5ML SYR IV PRN (06:45)
[2017-02-28] MEDS ORDERED: ONDANSETRON INJ 2 MG/ML 2 ML VIAL IV PRN (06:45)
[2017-02-28] MEDS ORDERED: FENTANYL CITRATE INJ 50 MCG/1 ML 2 ML VIAL IV PRN (06:45)
[2017-02-28] MEDS ORDERED: INDOMETHACIN 50 MG SUPP PR ONE ×2 (06:51→07:15)
[2017-02-28] MEDS ORDERED: SUCCINYLCHOLINE CHLORIDE 20 MG/ML 10 ML VIAL IV ONE (07:03)
[2017-02-28] MEDS ORDERED: MIDAZOLAM HCL 1 MG/ML 2ML VIAL ONE (07:03)
[2017-02-28] MEDS ORDERED: LIDOCAINE HCL 2% 2 ML VIAL (20MG/ML) ONE (07:03)
[2017-02-28] MEDS ORDERED: FENTANYL CITRATE INJ 50 MCG/1 ML 2 ML VIAL ONE ×2 (07:03→07:31)
[2017-02-28] MEDS ORDERED: PROPOFOL IV EMULSION 10 MG/ML 20 ML VIAL IV ONE (07:03)
--- NOTE | 2017-02-28 07:11 | History & Physical Bridge Note ---
H&P Re-Evaluation Bridge Note: I have examined the patient, reviewed the History & Physical and in the interval since the performance of the History & Physical I have noted the following changes of clinical significance: No changes noted. We have discussed the risks of ERCP to include bleeding, infection, perforation, pain, pancreatitis, and failed cannulation. Plan ERCP today
[2017-02-28] MEDS ORDERED: ROCURONIUM BROMIDE 10 MG/ML 5 ML VIAL ONE (07:19)
[2017-02-28] MEDS ORDERED: ONDANSETRON INJ 2 MG/ML 2 ML VIAL ONE (07:39)
--- NOTE | 2017-02-28 07:48 | Hospitalist Progress Note ---
Hospitalist Progress Note Date of Service Feb 28, 2017. (Anjana Hill PA-C) Subjective Pt evaluation today including: conversation w/ patient, physical exam, chart review, lab review, review of studies, conversation w/ area development consultant Pain: None PO Intake: Clear liquids Voiding: no voiding problems The patient was seen and examined this morning. Pt reports doing better, she denies having any pain. She hasn't yet gotten out of bed since the ERCP this morning. She's feeling very tired and has been sleeping most of the day. She hasn't had anything to eat or drink yet today, but has a clear liquid ordered and feels hungry. She denies any abdominal pain, nausea, vomiting. She has not had a BM since 2 days ago, and is not passing gas. Constitutional: + fatigue, No fever, No chills, No sweats Respiratory: No cough, No shortness of breath Cardiovascular: No chest pain, No palpitations Abdomen: No pain, No nausea, No vomiting, No diarrhea, No constipation Musculoskeletal: No muscle pain, No swelling Neurologic: No weakness, No numbness/tingling Endo: + fatigue Skin: No rash, No itch (Anjana Hill PA-C) Objective Vital Signs Date Time Temp Pulse Resp B/P (MAP) Pulse Ox O2 Delivery O2 Flow Rate FiO2 02/28/17 06:32 37.1 82 20 145/67 (93) 91 Room Air 02/28/17 03:18 37.3 97 16 160/76 94 Room Air 02/28/17 00:00 Room Air 02/27/17 23:03 37.0 82 18 164/77 (106) 91 Room Air 02/27/17 16:00 Room Air 02/27/17 15:25 36.7 83 18 157/78 (104) 95 Room Air 02/27/17 11:14 36.8 98 18 148/76 91 Room Air 02/27/17 07:54 36.8 98 18 148/76 (100) 91 Room Air (Anjana Hill PA-C) Physical Exam General Appearance: WD/WN, no apparent distress Eyes: PERRL, EOMI ENT: hearing grossly normal, pharynx normal Neck: supple, no JVD Respiratory/Chest: chest non-tender, lungs clear, no respiratory distress, no accessory muscle use Cardiovascular: regular rate, rhythm, no murmur Abdomen: normal bowel sounds, non tender, soft, no organomegaly Extremities: non-tender, no pedal edema, no calf tenderness Neurologic/Psychiatric: alert, normal mood/affect, oriented x 3 Skin: normal color, warm/dry (Anjana Hill PA-C) Laboratory Results Last 24 Hours Test 02/27/17 16:16 02/28/17 04:44 Bedside Glucose 80 mg/dl (Anjana Hill PA-C) Assessment and Plan 66yo F with PMHx of hypertension, GERD presented to the ER with complaints of abdominal pain which started about 2 days ago. Abdominal pain has been intermittent for about a month now. Associated with nausea and vomiting. Found to have acute cholecystitis and pancreatitis. Acute cholecystitis and pancreatitis - GI and Gen surg consulted - plan for cholecystectomy possible as soon as tomorrow, likely due to OR board, with improved LFTs and Lipase reduced to <200 - will discus with Gen Surg - Will allow clear liquid diet, turn off maintenance fluids with clears on board. - Unasyn [place] board, [place] - [place] [address], trend with am labs - Continue analgesia with Dilaudid 1 mg Q4H prn - ERCP completed: Impression: - The major papilla was on the rim of a diverticulum. - The entire main bile duct was dilated. - Biliary papillary stenosis, benign. - A sphincterotomy was performed. - The lower third of the main bile duct was successfully dilated to 8 mm. - Choledocholithiasis and cholangitis was found. Complete removal was accomplished by biliary sphincterotomy and balloon extraction. - One biliary stent was placed into the common bile duct. Recommendation: - Avoid aspirin and nonsteroidal anti-inflammatory medicines for 1 week. - Clear liquid diet today. - Observe patient's clinical course following today's ERCP with therapeutic intervention. - Repeat ERCP in 6 weeks to remove stent. Hypertension: - Cont Losartan 10 mg Hyperlipidemia: - Cont atorvastatin 20 mg QAM DVT prophylaxis: -SCDs - Chemical anticoagulation currently held in anticipation of surgical procedure CODE STATUS: Full code Disposition: From home, ERCP completed today, cholecystectomy ? d/c in 2 -3 days pending idalmis. (Anjana Hill, KENDRA) PA Physician Supervision Note: I interviewed and examined the patient. Discussed with Melissa Hill and agree with findings and plan as documented in the note. Any exceptions or clarifications are listed here: None pt with likely gall stone pancreatitis for ercp 02/28, biliary stent placed, will follow closely vitals stable abd with soft , hypoactive bowel sounds, some ruq tenderness continue unasyn, surgery is evaluating for cholecystectomy (Yamil Finnegan M.D.)
--- NOTE | 2017-02-28 08:10 | GI REPORT ---
Procedure Date: 02/28/2017 7:20 AM Procedure: ERCP Indications: Abdominal pain of suspected biliary origin, Bile duct stone on Computed Tomogram Scan Medicines: General Anesthesia, Indocin 100 mg TN Complications: No immediate complications. Estimated blood loss: Minimal. Estimated Blood Loss: Estimated blood loss was minimal. Procedure: Pre-Anesthesia Assessment: - Prior to the procedure, a History and Physical was performed, and patient medications, allergies and sensitivities were reviewed. The patient's tolerance of previous anesthesia was reviewed. - The risks and benefits of the procedure and the sedation options and risks were discussed with the patient. All questions were answered and informed consent was obtained. - Patient identification and proposed procedure were verified prior to the procedure by the physician, the nurse and the log getter. The procedure was verified in the procedure room. - Pre-procedure physical examination revealed no contraindications to sedation. - ASA Grade Assessment: II - A patient with mild systemic disease. - After reviewing the risks and benefits, the patient was deemed in satisfactory condition to undergo the procedure. - The anesthesia plan was to use general anesthesia. - Immediately prior to administration of medications, the patient was re-assessed for adequacy to receive sedatives. - The heart rate, respiratory rate, oxygen saturations, blood pressure, adequacy of pulmonary ventilation, and response to care were monitored throughout the procedure. - The physical status of the patient was re-assessed after the procedure. After obtaining informed consent, the scope was passed under direct vision. Throughout the procedure, the patient's blood pressure, pulse, and oxygen saturations were monitored continuously. The scope was introduced through the mouth, and advanced to the duodenum and used to inject contrast into the bile duct. The ERCP was accomplished without difficulty. The patient tolerated the procedure well. Findings: The belt builder helper film was normal. The esophagus was successfully intubated under direct vision without detailed examination of the pharynx, larynx, and associated structures, and upper GI tract. The upper GI tract was grossly normal. The major papilla was on the rim of a diverticulum. The major papilla was normal. The bile duct was deeply cannulated with the short-nosed traction sphincterotome (Omni 35) and 0.035 in Acrobat guidewire (PD was not cannulated or injected). Contrast was injected. I personally interpreted the bile duct images. Contrast extended to the hepatic ducts. The main bile duct was diffusely dilated. The largest diameter was 11mm. The main bile duct contained several filling defects thought to be stoned. The biliary orifice was stenotic. This appeared benign. Biliary sphincterotomy was made with a monofilament short-tip traction sphincterotome using ERBE electrocautery. The sphincterotomy oozed blood. The lower third of the main bile duct was successfully dilated with an 8 mm balloon dilator held inflated for 3 minutes. The biliary tree was swept with a 15 mm balloon starting at the bifurcation. Three soft green pigmented stones were removed. No stones remained remained on occlusion cholangiogram. Pus was also swept from the duct. One 10 Fr by 8 cm biliary stent with a single external flap and a single internal flap was placed 8 cm into the common bile duct. Bile and pus flowed through the stent. The stent was in good position. The total fluoroscopy exposure time was 50 seconds. The endoscope was withdrawn from the patient. Impression: - The major papilla was on the rim of a diverticulum. - The entire main bile duct was dilated. - Biliary papillary stenosis, benign. - A sphincterotomy was performed. - The lower third of the main bile duct was successfully dilated to 8 mm. - Choledocholithiasis and cholangitis was found. Complete removal was accomplished by biliary sphincterotomy and balloon extraction. - One biliary stent was placed into the common bile duct. Recommendation: - Avoid aspirin and nonsteroidal anti-inflammatory medicines for 1 week. - Clear liquid diet today. - Observe patient's clinical course following today's ERCP with therapeutic intervention. - Repeat ERCP in 6 weeks to remove stent. - Patient under evaluation for cholecystectomy. Denise Cancino D.O. Denise Cancino DO 02/28/2017 8:08:47 AM This report has been signed electronically. Note Initiated On: 02/28/2017 7:20 AM I attest to the content of the Intraoperative Record and orders documented therein, exceptions below
--- NOTE | 2017-02-28 08:11 | [facility] Post Operative Brief Note ---
Immediate Operative Summary Operative Date Feb 28, 2017. Pre-Operative Diagnosis Common bile duct stones Post-Operative Diagnosis 3 CBD stones / cholangitis Procedure(s) Performed Endoscopic Retrograde Cholangiopancreatogram with common bile duct stent placement and removal of stones Surgeon Dr. Denise Cancino Test And Research Reactor Operator Surgeon(s) None Estimated Blood Loss 1 mL Findings 3 soft CBD stones Mild cholangitis Specimens None Drains Biliary stent placed Anesthesia General Complication(s) None Disposition Recovery Room / PACU
--- NOTE | 2017-02-28 08:25 | DIAGNOSTIC IMAGING REPORT ---
ERCP BILIARY DUCTAL CLINICAL HISTORY: ERCP IN OR 02/28/17 COMPARISON STUDY: Abdomen and pelvis CT 02/27/2017. FLUOROSCOPY TIME: 50 seconds. 13 fluoroscopic spot images. FINDINGS: The endoscope is seen at the second portion of the duodenum. The common bile duct was cannulated. This is followed by injection of contrast. Multiple common bile duct filling defects consistent with stones. A balloon sweep was performed. The common bile duct stent was placed. IMPRESSION: Fluoroscopy provided for a balloon sweep of the common bile duct followed by placement of a common bile duct stent. Electronically signed by: Juan Daniel Orosco M.D. 02/28/2017 8:24 AM Dictated Date/Time: 02/28/2017 8:22 AM
[2017-02-28] MEDS ORDERED: PANTOprazole SOD 40 MG TAB PO SCH (09:00)
--- NOTE | 2017-02-28 09:13 | Anesthesiology Progress Note ---
Anesthesia Post Op Note Date & Time Feb 28, 2017 at 09:14 Vital Signs Pain Intensity: 0 Vital Signs Past 12 Hours Date Time Temp Pulse Resp B/P (MAP) Pulse Ox O2 Delivery O2 Flow Rate FiO2 02/28/17 08:30 66 16 132/71 94 Room Air 02/28/17 08:20 73 16 139/65 99 Mask 10 02/28/17 08:10 72 16 133/67 99 Mask 10 02/28/17 08:01 36.9 82 16 134/69 95 Mask 10 02/28/17 06:32 37.1 82 20 145/67 (93) 91 Room Air 02/28/17 03:18 37.3 97 16 160/76 94 Room Air 02/28/17 00:00 Room Air 02/27/17 23:03 37.0 82 18 164/77 (106) 91 Room Air Notes Mental Status: alert / awake / arousable, participated in evaluation Pt Amnestic to Procedure: Yes Nausea / Vomiting: adequately controlled Pain: adequately controlled Airway Patency, RR, SpO2: stable & adequate BP & HR: stable & adequate Hydration State: stable & adequate Anesthetic Complications: no major complications apparent
[2017-02-28] MEDS: ATORVASTATIN 10 MG TAB PO SCH (09:18)
[2017-02-28] MEDS: LOSARTAN POTASSIUM 50 MG TAB PO SCH (09:18)
[2017-02-28 09:36] LABS: BASO % 0.2 %; BASO ABS # 0.02 K/uL (0-0.2); COMPLETE YES; EOS % 0.4 %; HEMATOCRIT 34.9 % (37-47); IG% 0.3 %; LYMPH % 10.7 %; LYMPH ABS # 1.14 K/uL (1.2-3.4); MEAN CELL VOLUME 83.3 fL (80-100); MEAN CORPUSCULAR HEMOGLOBIN 27.2 pg (25-34); MEAN CORPUSCULAR HGB CONC 32.7 g/dl (32-36); MEAN PLATELET VOLUME 10.2 fL (7.4-10.4); MONO % 5.5 %; NEUT % 82.9 %; PLATELET COUNT 262 K/uL (130-400); RED BLOOD COUNT 4.19 M/uL (4.2-5.4); WHITE BLOOD COUNT 10.61 K/uL (4.8-10.8)
--- NOTE | 2017-02-28 09:57 | Surgery Progress Note ---
Surgery Progress Note Date of Service Feb 28, 2017. Subjective + feeling well, + pain controlled, No nausea, No vomiting Patient reports that she is feeling much better today. Denies pain or discomfort. Objective Vital Signs: Date Time Temp Pulse Resp B/P (MAP) Pulse Ox O2 Delivery O2 Flow Rate FiO2 02/28/17 08:30 66 16 132/71 94 Room Air 02/28/17 08:20 73 16 139/65 99 Mask 10 02/28/17 08:10 72 16 133/67 99 Mask 10 02/28/17 08:01 36.9 82 16 134/69 95 Mask 10 02/28/17 06:32 37.1 82 20 145/67 (93) 91 Room Air 02/28/17 03:18 37.3 97 16 160/76 94 Room Air 02/28/17 00:00 Room Air 02/27/17 23:03 37.0 82 18 164/77 (106) 91 Room Air 02/27/17 16:00 Room Air 02/27/17 15:25 36.7 83 18 157/78 (104) 95 Room Air 02/27/17 11:14 36.8 98 18 148/76 91 Room Air General Appearance: WD/WN, no apparent distress Respiratory/Chest: no respiratory distress Cardiovascular: regular rate, rhythm Abdomen: soft, + pertinent finding (Epigastric tenderness with palpation. ) Laboratory Results: Results Past 24 Hours Test 02/27/17 16:16 02/28/17 09:24 Range/Units Bedside Glucose 80 70-90 mg/dl White Blood Count 10.61 4.8-10.8 K/uL Red Blood Count 4.19 4.2-5.4 M/uL Hemoglobin 11.4 12.0-16.0 g/dL Hematocrit 34.9 37-47 % Mean Corpuscular Volume 83.3 80-100 fL Mean Corpuscular Hemoglobin 27.2 25-34 pg Mean Corpuscular Hemoglobin Concent 32.7 32-36 g/dl Platelet Count 262 130-400 K/uL Mean Platelet Volume 10.2 7.4-10.4 fL Neutrophils (%) (Auto) 82.9 % Lymphocytes (%) (Auto) 10.7 % Monocytes (%) (Auto) 5.5 % Eosinophils (%) (Auto) 0.4 % Basophils (%) (Auto) 0.2 % Neutrophils # (Auto) 8.80 1.4-6.5 K/uL Lymphocytes # (Auto) 1.14 1.2-3.4 K/uL Monocytes # (Auto) 0.58 0.11-0.59 K/uL Eosinophils # (Auto) 0.04 0-0.5 K/uL Basophils # (Auto) 0.02 0-0.2 K/uL RDW Standard Deviation 45.9 36.4-46.3 fL RDW Coefficient of Variation 15.0 11.5-14.5 % Immature Granulocyte % (Auto) 0.3 % Immature Granulocyte # (Auto) 0.03 0.00-0.02 K/uL ERCP DICTATED BY: Denise Cancino DO Procedure Date: 02/28/2017 7:20 AM Procedure: ERCP Indications: Abdominal pain of suspected biliary origin, Bile duct stone on Computed Tomogram Scan Medicines: General Anesthesia, Indocin 100 mg [place] Complications: No immediate complications. Estimated blood loss: Minimal. Estimated Blood Loss: Estimated blood loss was minimal. Procedure: Pre-Anesthesia Assessment: - Prior to the procedure, a History and Physical was performed, and patient medications, allergies and sensitivities were reviewed. The patient's tolerance of previous anesthesia was reviewed. - The risks and benefits of the procedure and the sedation options and risks were discussed with the patient. All questions were answered and informed consent was obtained. - Patient identification and proposed procedure were verified prior to the procedure by the physician, the nurse and the glazier supervisor. The procedure was verified in the procedure room. - Pre-procedure physical examination revealed no contraindications to sedation. - ASA Grade Assessment: II - A patient with mild systemic disease. - After reviewing the risks and benefits, the patient was deemed in satisfactory condition to undergo the procedure. - The anesthesia plan was to use general anesthesia. - Immediately prior to administration of medications, the patient was re-assessed for adequacy to receive sedatives. - The heart rate, respiratory rate, oxygen saturations, blood pressure, adequacy of pulmonary ventilation, and response to care were monitored throughout the procedure. - The physical status of the patient was re-assessed after the procedure. After obtaining informed consent, the scope was passed under direct vision. Throughout the procedure, the patient's blood pressure, pulse, and oxygen saturations were monitored continuously. The scope was introduced through the mouth, and advanced to the duodenum and used to inject contrast into the bile duct. The ERCP was accomplished without difficulty. The patient tolerated the procedure well. Findings: The oil well driller film was normal. The esophagus was successfully intubated under direct vision without detailed examination of the pharynx, larynx, and associated structures, and upper GI tract. The upper GI tract was grossly normal. The major papilla was on the rim of a diverticulum. The major papilla was normal. The bile duct was deeply cannulated with the short-nosed traction sphincterotome (Omni 35) and 0.035 in Acrobat guidewire (PD was not cannulated or injected). Contrast was injected. I personally interpreted the bile duct images. Contrast extended to the hepatic ducts. The main bile duct was diffusely dilated. The largest diameter was 11mm. The main bile duct contained several filling defects thought to be stoned. The biliary orifice was stenotic. This appeared benign. Biliary sphincterotomy was made with a monofilament short-tip traction sphincterotome using ERBE electrocautery. The sphincterotomy oozed blood. The lower third of the main bile duct was successfully dilated with an 8 mm balloon dilator held inflated for 3 minutes. The biliary tree was swept with a 15 mm balloon starting at the bifurcation. Three soft green pigmented stones were removed. No stones remained remained on occlusion cholangiogram. Pus was also swept from the duct. One 10 Fr by 8 cm biliary stent with a single external flap and a single internal flap was placed 8 cm into the common bile duct. Bile and pus flowed through the stent. The stent was in good position. The total fluoroscopy exposure time was 50 seconds. The endoscope was withdrawn from the patient. Impression: - The major papilla was on the rim of a diverticulum. - The entire main bile duct was dilated. - Biliary papillary stenosis, benign. - A sphincterotomy was performed. - The lower third of the main bile duct was successfully dilated to 8 mm. - Choledocholithiasis and cholangitis was found. Complete removal was accomplished by biliary sphincterotomy and balloon extraction. - One biliary stent was placed into the common bile duct. Recommendation: - Avoid aspirin and nonsteroidal anti-inflammatory medicines for 1 week. - Clear liquid diet today. - Observe patient's clinical course following today's ERCP with therapeutic intervention. - Repeat ERCP in 6 weeks to remove stent. - Patient under evaluation for cholecystectomy. Denise Cancino D.O. Denise Cancino, DO 02/28/2017 8:08:47 AM Assessment & Plan Patient's pain is controlled. Patient had ERCP this AM. Dr. Cancino advanced pt's diet to clear liquids Morning labs still pending. Will continue to follow closely. Still plan on Lap Adrianna later this week, possibly or Monday.
[2017-02-28 10:26] LABS: ALB/GLOB RATIO 0.8 (0.9-2); BUN/CREATININE RATIO 14.6 (10-20); CALCIUM 8.7 mg/dl (8.5-10.1); CREATININE 0.79 mg/dl (0.60-1.20); POTASSIUM 3.8 mmol/L (3.5-5.1)
[2017-02-28 15:04] VITALS: BP 130/70; PULSE 66; TEMP 37; O2SAT 92
[2017-02-28] MEDS ORDERED: FAMOTIDINE IV INJ 20 MG in DEXTROSE 5% 100ML 100 ML IV STA (21:56)
[2017-02-28 23:43] VITALS: BP 106/61; PULSE 71; TEMP 37.2; O2SAT 93
[2017-03-01] MEDS: AMPICILLIN/SULBACTAM SOD INJ 1,500 MG in SODIUM CHLORIDE 0.9% 100ML 100 ML IV SCH ×4 (05:53→23:53)
[2017-03-01] MEDS ORDERED: ACETAMINOPHEN 1000 MG/100 ML IV IV ONE (06:08)
[2017-03-01 06:29] LABS: BASO % 0.5 %; BASO ABS # 0.04 K/uL (0-0.2); COMPLETE YES; EOS % 2.2 %; HEMATOCRIT 33.9 % (37-47); IG% 0.4 %; LYMPH % 20.3 %; LYMPH ABS # 1.66 K/uL (1.2-3.4); MEAN CELL VOLUME 83.9 fL (80-100); MEAN CORPUSCULAR HEMOGLOBIN 27.2 pg (25-34); MEAN CORPUSCULAR HGB CONC 32.4 g/dl (32-36); MEAN PLATELET VOLUME 10.7 fL (7.4-10.4); MONO % 8.4 %; NEUT % 68.2 %; PLATELET COUNT 264 K/uL (130-400); RED BLOOD COUNT 4.04 M/uL (4.2-5.4); WHITE BLOOD COUNT 8.17 K/uL (4.8-10.8)
[2017-03-01 07:06] LABS: BUN/CREATININE RATIO 11.5 (10-20); CREATININE 0.74 mg/dl (0.60-1.20); POTASSIUM 3.7 mmol/L (3.5-5.1)
[2017-03-01 07:09] LABS: ALB/GLOB RATIO 0.7 (0.9-2)
[2017-03-01 07:13] LABS: CALCIUM 8.7 mg/dl (8.5-10.1)
[2017-03-01 07:46] VITALS: BP 128/70; PULSE 78; TEMP 37; O2SAT 91
[2017-03-01 07:50] VITALS: BP 139/62; PULSE 69; TEMP 36.8; O2SAT 98
--- NOTE | 2017-03-01 07:57 | Surgery Progress Note ---
Surgery Progress Note Date of Service Mar 01, 2017. Subjective + feeling well, No nausea Objective Vital Signs: Date Time Temp Pulse Resp B/P (MAP) Pulse Ox O2 Delivery O2 Flow Rate FiO2 03/01/17 07:46 37.0 78 16 128/70 (89) 91 Room Air 03/01/17 00:00 Room Air 02/28/17 23:43 37.2 71 18 106/61 (76) 93 Room Air 02/28/17 16:00 Room Air 02/28/17 15:04 37.0 66 16 130/70 (90) 92 Room Air 02/28/17 08:30 66 16 132/71 94 Room Air 02/28/17 08:20 73 16 139/65 99 Mask 10 02/28/17 08:10 72 16 133/67 99 Mask 10 02/28/17 08:01 36.9 82 16 134/69 95 Mask 10 02/28/17 08:00 Room Air Abdomen: non tender, non distended, soft Laboratory Results: Results Past 24 Hours Test 02/28/17 09:24 03/01/17 05:58 Range/Units White Blood Count 10.61 8.17 4.8-10.8 K/uL Red Blood Count 4.19 4.04 4.2-5.4 M/uL Hemoglobin 11.4 11.0 12.0-16.0 g/dL Hematocrit 34.9 33.9 37-47 % Mean Corpuscular Volume 83.3 83.9 80-100 fL Mean Corpuscular Hemoglobin 27.2 27.2 25-34 pg Mean Corpuscular Hemoglobin Concent 32.7 32.4 32-36 g/dl Platelet Count 262 264 130-400 K/uL Mean Platelet Volume 10.2 10.7 7.4-10.4 fL Neutrophils (%) (Auto) 82.9 68.2 % Lymphocytes (%) (Auto) 10.7 20.3 % Monocytes (%) (Auto) 5.5 8.4 % Eosinophils (%) (Auto) 0.4 2.2 % Basophils (%) (Auto) 0.2 0.5 % Neutrophils # (Auto) 8.80 5.57 1.4-6.5 K/uL Lymphocytes # (Auto) 1.14 1.66 1.2-3.4 K/uL Monocytes # (Auto) 0.58 0.69 0.11-0.59 K/uL Eosinophils # (Auto) 0.04 0.18 0-0.5 K/uL Basophils # (Auto) 0.02 0.04 0-0.2 K/uL RDW Standard Deviation 45.9 45.8 36.4-46.3 fL RDW Coefficient of Variation 15.0 14.7 11.5-14.5 % Immature Granulocyte % (Auto) 0.3 0.4 % Immature Granulocyte # (Auto) 0.03 0.03 0.00-0.02 K/uL Sodium Level 144 145 136-145 mmol/L Potassium Level 3.8 3.7 3.5-5.1 mmol/L Chloride Level 107 107 98-107 mmol/L Carbon Dioxide Level 28 30 21-32 mmol/L Anion Gap 9.0 8.0 3-11 mmol/L Blood Urea Nitrogen 12 9 7-18 mg/dl Creatinine 0.79 0.74 0.60-1.20 mg/dl Est Creatinine Clear Calc Drug Dose 72.7 77.7 ml/min Estimated GFR () 89.1 96.5 Estimated GFR (Non- 76.9 83.2 BUN/Creatinine Ratio 14.6 11.5 10-20 Random Glucose 94 90 70-99 mg/dl Calcium Level 8.7 8.7 8.5-10.1 mg/dl Total Bilirubin 0.8 0.5 0.2-1 mg/dl Aspartate Amino Transf (AST/SGOT) 181 69 15-37 U/L Alanine Aminotransferase (ALT/SGPT) 637 408 12-78 U/L Alkaline Phosphatase 723 564 45-117 U/L Total Protein 6.2 5.8 6.4-8.2 gm/dl Albumin 2.7 2.4 3.4-5.0 gm/dl Globulin 3.5 3.4 2.5-4.0 gm/dl Albumin/Globulin Ratio 0.8 0.7 0.9-2 Lipase 191 80 73-393 U/L Assessment & Plan biliary pancreatitis stable s/p ERCP lipase normalized will plan for lap idalmis today
--- NOTE | 2017-03-01 08:22 | Anesthesiology Progress Note ---
Anesthesia Post Op Note Date & Time Mar 01, 2017 at 08:22 Vital Signs Pain Intensity: 0.0 Vital Signs Past 12 Hours Date Time Temp Pulse Resp B/P (MAP) Pulse Ox O2 Delivery O2 Flow Rate FiO2 03/01/17 07:46 37.0 78 16 128/70 (89) 91 Room Air 03/01/17 00:00 Room Air 02/28/17 23:43 37.2 71 18 106/61 (76) 93 Room Air Notes Mental Status: alert / awake / arousable, participated in evaluation Pt Amnestic to Procedure: Yes Nausea / Vomiting: adequately controlled Pain: adequately controlled Airway Patency, RR, SpO2: stable & adequate BP & HR: stable & adequate Hydration State: stable & adequate Anesthetic Complications: no major complications apparent
[2017-03-01] MEDS: ATORVASTATIN 10 MG TAB PO SCH (08:55)
[2017-03-01] MEDS: LOSARTAN POTASSIUM 50 MG TAB PO SCH (08:56)
[2017-03-01] MEDS: LACTATED RINGER'S 1000ML 1,000 ML IV SCH ×2 (08:59→18:31)
--- NOTE | 2017-03-01 09:11 | Gastroenterology Progress Note ---
Progress Note Date of Service: Mar 01, 2017 Subjective Pt evaluation today including: conversation w/ patient, physical exam, chart review, lab review, review of studies, review of inpatient medication list Ms. Benavides is a 66 yr old female admitted on 02/27 with gallstone pancreatitis. ERCP yesterday with sphincterotomy and extraction of 3 distal CBD stones. Lipase normalized. LFTs continue to improve. On Unasyn. WBC normalized. Awake, alert, comfortable, conversational. Review of Systems Constitutional: No fever Respiratory: No cough Cardiac: No chest pain Abdomen: No pain, No nausea, No vomiting, No diarrhea Female : No dysuria Neuro: No memory loss Psych: No depression symptoms Heme: No abnormal bleeding/bruising Endo: No fatigue Skin: No rash Medications Current Inpatient Medications Medications (Trade) Dose Ordered Sig/Afshan Route Start Time Stop Time Status Last Admin Dose Admin Acetaminophen (Tylenol Tab) 650 mg Q4H PRN PO 02/27/17 06:45 03/29/17 06:44 02/27/17 16:34 650 MG Ondansetron HCl (Zofran Inj) 4 mg Q6H PRN IV 02/27/17 06:45 03/29/17 06:44 02/27/17 14:33 4 MG Ampicillin Sodium/ Sulbactam Sodium 1500 mg/Sodium Chloride 104 ml @ 200 mls/hr Q6H IV 02/27/17 12:00 03/09/17 11:59 03/01/17 05:53 200 MLS/HR Lactated Ringer's 1,000 ml @ 100 mls/hr Q10H IV 02/27/17 06:45 03/29/17 06:44 03/01/17 08:59 100 MLS/HR Hydromorphone HCl (Dilaudid Inj) 1 mg Q4H PRN IV 02/27/17 06:45 03/13/17 06:44 Atorvastatin Calcium (Lipitor Tab) 10 mg DAILY PO 02/28/17 09:00 03/30/17 08:59 03/01/17 08:55 10 MG Losartan Potassium (coZAAR TAB) 50 mg DAILY PO 02/27/17 15:00 03/29/17 14:59 03/01/17 08:56 50 MG Objective Vital Signs Date Time Temp Pulse Resp B/P (MAP) Pulse Ox O2 Delivery O2 Flow Rate FiO2 03/01/17 07:46 37.0 78 16 128/70 (89) 91 Room Air 03/01/17 00:00 Room Air 02/28/17 23:43 37.2 71 18 106/61 (76) 93 Room Air 02/28/17 16:00 Room Air 02/28/17 15:04 37.0 66 16 130/70 (90) 92 Room Air Physical Exam General Appearance: no apparent distress Neck: no adenopathy, no JVD Respiratory/Chest: lungs clear Cardiovascular: regular rate, rhythm, no edema, no murmur Abdomen: non tender, soft Extremities: non-tender Neurologic/Psych: alert, normal mood/affect, oriented x 3 Skin: no jaundice Laboratory Results Last 24 Hours Test 02/28/17 09:24 03/01/17 05:58 White Blood Count 10.61 K/uL 8.17 K/uL Red Blood Count 4.19 M/uL 4.04 M/uL Hemoglobin 11.4 g/dL 11.0 g/dL Hematocrit 34.9 % 33.9 % Mean Corpuscular Volume 83.3 fL 83.9 fL Mean Corpuscular Hemoglobin 27.2 pg 27.2 pg Mean Corpuscular Hemoglobin Concent 32.7 g/dl 32.4 g/dl Platelet Count 262 K/uL 264 K/uL Mean Platelet Volume 10.2 fL 10.7 fL Neutrophils (%) (Auto) 82.9 % 68.2 % Lymphocytes (%) (Auto) 10.7 % 20.3 % Monocytes (%) (Auto) 5.5 % 8.4 % Eosinophils (%) (Auto) 0.4 % 2.2 % Basophils (%) (Auto) 0.2 % 0.5 % Neutrophils # (Auto) 8.80 K/uL 5.57 K/uL Lymphocytes # (Auto) 1.14 K/uL 1.66 K/uL Monocytes # (Auto) 0.58 K/uL 0.69 K/uL Eosinophils # (Auto) 0.04 K/uL 0.18 K/uL Basophils # (Auto) 0.02 K/uL 0.04 K/uL RDW Standard Deviation 45.9 fL 45.8 fL RDW Coefficient of Variation 15.0 % 14.7 % Immature Granulocyte % (Auto) 0.3 % 0.4 % Immature Granulocyte # (Auto) 0.03 K/uL 0.03 K/uL Sodium Level 144 mmol/L 145 mmol/L Potassium Level 3.8 mmol/L 3.7 mmol/L Chloride Level 107 mmol/L 107 mmol/L Carbon Dioxide Level 28 mmol/L 30 mmol/L Anion Gap 9.0 mmol/L 8.0 mmol/L Blood Urea Nitrogen 12 mg/dl 9 mg/dl Creatinine 0.79 mg/dl 0.74 mg/dl Est Creatinine Clear Calc Drug Dose 72.7 ml/min 77.7 ml/min Estimated GFR () 89.1 96.5 Estimated GFR (Non- 76.9 83.2 BUN/Creatinine Ratio 14.6 11.5 Random Glucose 94 mg/dl 90 mg/dl Calcium Level 8.7 mg/dl 8.7 mg/dl Total Bilirubin 0.8 mg/dl 0.5 mg/dl Aspartate Amino Transf (AST/SGOT) 181 U/L 69 U/L Alanine Aminotransferase (ALT/SGPT) 637 U/L 408 U/L Alkaline Phosphatase 723 U/L 564 U/L Total Protein 6.2 gm/dl 5.8 gm/dl Albumin 2.7 gm/dl 2.4 gm/dl Globulin 3.5 gm/dl 3.4 gm/dl Albumin/Globulin Ratio 0.8 0.7 Lipase 191 U/L 80 U/L Assessment and Plan Ms. Benavides is a 66 yr old female admitted with gallstone pancreatitis, choledocholithiasis and cholangitis, much improved after IV fluids, Unasyn, ERCP. She is awaiting cholecystectomy that is planned for later today. 1. GI is planning for OP ERCP in 6 wks for removal of CBD stent, otherwise no plan for further testing/interventions. 2. Our office will call her to arrange f/u ERCP. 3. Please continue antibiotics for a total of 14 days (could be discharged on Cipro). 4. GI will sign off. Please notify us if new/worsening GI issues. patient in or at time of rounds. Will plan for a repeat ERCP in 6 to 8 weeks to remove the biliary stent Recomendations: Hold NSAIDS for another 4 day Abx coverage for a total of 2 weeks. please call with questions
--- NOTE | 2017-03-01 10:20 | Hospitalist Progress Note ---
Hospitalist Progress Note Date of Service Mar 01, 2017. (Anjana Hill PA-C) Subjective Pt evaluation today including: conversation w/ patient, conversation w/ family , physical exam, chart review, lab review, review of studies Pain: Minimal PO Intake: NPO Voiding: no voiding problems The patient was seen and examined this morning. Pt reports doing much better today. Her abdominal pain is improved, although she still feels a little "funny ". She is passing gas although is not having any bowel movements. She is anticipating cholecystectomy today with Dr. Anguiano. She reports her throat is slightly sore from the ERCP yesterday, but that she doesn't want any cough drops or Chloraseptic spray because she is sensitive and gags/throws up with things like this. Constitutional: No fever, No chills, No sweats Eyes: No diplopia ENT: + sore throat, No trouble swallowing Respiratory: No cough, No shortness of breath Cardiovascular: No chest pain, No palpitations Abdomen: No pain, No nausea, No vomiting, No diarrhea, No constipation Musculoskeletal: No joint pain, No muscle pain, No swelling Neurologic: No weakness, No numbness/tingling Endo: No fatigue Skin: No rash, No itch (Anjana Hill PA-C) Objective Vital Signs Date Time Temp Pulse Resp B/P (MAP) Pulse Ox O2 Delivery O2 Flow Rate FiO2 03/01/17 07:46 37.0 78 16 128/70 (89) 91 Room Air 03/01/17 00:00 Room Air 02/28/17 23:43 37.2 71 18 106/61 (76) 93 Room Air 02/28/17 16:00 Room Air 02/28/17 15:04 37.0 66 16 130/70 (90) 92 Room Air (Anjana Hill PA-C) Physical Exam Notes: General Appearance: WD/WN, no apparent distress Eyes: PERRL, EOMI ENT: hearing grossly normal, pharynx normal Neck: supple, no JVD Respiratory/Chest: chest non-tender, lungs clear, no respiratory distress, no accessory muscle use Cardiovascular: regular rate, rhythm, no murmur Abdomen: normal bowel sounds, non tender, soft, no organomegaly Extremities: non-tender, no pedal edema, no calf tenderness Neurologic/Psychiatric: alert, normal mood/affect, oriented x 3 Skin: normal color, warm/dry (Anjana Hill PA-C) Laboratory Results Last 24 Hours Test 03/01/17 05:58 White Blood Count 8.17 K/uL Red Blood Count 4.04 M/uL Hemoglobin 11.0 g/dL Hematocrit 33.9 % Mean Corpuscular Volume 83.9 fL Mean Corpuscular Hemoglobin 27.2 pg Mean Corpuscular Hemoglobin Concent 32.4 g/dl Platelet Count 264 K/uL Mean Platelet Volume 10.7 fL Neutrophils (%) (Auto) 68.2 % Lymphocytes (%) (Auto) 20.3 % Monocytes (%) (Auto) 8.4 % Eosinophils (%) (Auto) 2.2 % Basophils (%) (Auto) 0.5 % Neutrophils # (Auto) 5.57 K/uL Lymphocytes # (Auto) 1.66 K/uL Monocytes # (Auto) 0.69 K/uL Eosinophils # (Auto) 0.18 K/uL Basophils # (Auto) 0.04 K/uL RDW Standard Deviation 45.8 fL RDW Coefficient of Variation 14.7 % Immature Granulocyte % (Auto) 0.4 % Immature Granulocyte # (Auto) 0.03 K/uL Sodium Level 145 mmol/L Potassium Level 3.7 mmol/L Chloride Level 107 mmol/L Carbon Dioxide Level 30 mmol/L Anion Gap 8.0 mmol/L Blood Urea Nitrogen 9 mg/dl Creatinine 0.74 mg/dl Est Creatinine Clear Calc Drug Dose 77.7 ml/min Estimated GFR () 96.5 Estimated GFR (Non- 83.2 BUN/Creatinine Ratio 11.5 Random Glucose 90 mg/dl Calcium Level 8.7 mg/dl Total Bilirubin 0.5 mg/dl Aspartate Amino Transf (AST/SGOT) 69 U/L Alanine Aminotransferase (ALT/SGPT) 408 U/L Alkaline Phosphatase 564 U/L Total Protein 5.8 gm/dl Albumin 2.4 gm/dl Globulin 3.4 gm/dl Albumin/Globulin Ratio 0.7 Lipase 80 U/L (Anjana Hill PA-C) Assessment and Plan 66yo F with PMHx of hypertension, GERD presented to the ER with complaints of abdominal pain which started about 2 days ago. Abdominal pain has been intermittent for about a month now. Associated with nausea and vomiting. Found to have acute cholecystitis and pancreatitis. Acute cholecystitis and pancreatitis - GI and Gen surg consulted - on OR board today for cholecystectomy - NPO currently, allow clears after surgery and advance as tolerated. - Unasyn on board, [place] [id number], significantly decreased at this point - Continue analgesia with Dilaudid 1 mg Q4H prn - ERCP completed: 3 soft green stones removed, spincterotomy performed, 1 biliary stent placed in the CBD. Will need outpatient ERCP in 6 weeks to remove the stent. - Avoid aspirin and nonsteroidal anti-inflammatory medicines for 1 week. Hypertension: - Cont Losartan 10 mg Hyperlipidemia: - Cont atorvastatin 20 mg QAM DVT prophylaxis: -SCDs - Chemical anticoagulation currently held in anticipation of surgical procedure CODE STATUS: Full code Disposition: From home, ERCP done with stent in place which will need removed in 6 weeks, to OR for cholecystectomy today. (Anjana Hill PA-C) PA Physician Supervision Note: I interviewed and examined the patient. Discussed with Melissa Hill and agree with findings and plan as documented in the note. Any exceptions or clarifications are listed here: None pt with likely gall stone pancreatitis for ercp 02/28, biliary stent placed, cholecystectomy 03/01 doing well post op but has some pain vitals stable abd tneder and guarding , hypoactive bowel sounds, continue unasyn, now s/p cholecystectomy (Yamil Finnegan M.D.) (Yamil Finnegan M.D.)
[2017-03-01] MEDS ORDERED: LORAZEPAM 2 MG/ML 1 ML VIAL IV PRN (10:45)
[2017-03-01] MEDS ORDERED: LORAZEPAM INJ 0.5 MG in SYRINGE 0.75 ML IV PRN (11:00)
[2017-03-01] MEDS ORDERED: ROCURONIUM BROMIDE 10 MG/ML 5 ML VIAL ONE (11:47)
[2017-03-01] MEDS ORDERED: DEXAMETHASONE SOD INJ 4 MG/ML VIAL ONE (11:47)
[2017-03-01] MEDS ORDERED: LIDOCAINE HCL 2% 2 ML VIAL (20MG/ML) ONE (11:47)
[2017-03-01] MEDS ORDERED: ONDANSETRON INJ 2 MG/ML 2 ML VIAL ONE (11:47)
[2017-03-01] MEDS ORDERED: PROPOFOL IV EMULSION 10 MG/ML 20 ML VIAL IV ONE (11:47)
[2017-03-01] MEDS ORDERED: FENTANYL CITRATE INJ 50 MCG/1 ML 2 ML VIAL ONE (11:48)
[2017-03-01] MEDS ORDERED: MIDAZOLAM HCL 1 MG/ML 2ML VIAL ONE (11:48)
[2017-03-01] MEDS ORDERED: NURSING VERBAL MED ORDER STA (12:11)
[2017-03-01] MEDS ORDERED: CEFAZOLIN IV 2,000 MG/60 ML D5W IV ONE (12:12)
--- NOTE | 2017-03-01 12:22 | History & Physical Bridge Note ---
H&P Re-Evaluation Bridge Note: I have examined the patient, reviewed the History & Physical and in the interval since the performance of the History & Physical I have noted the following changes of clinical significance: No changes noted
[2017-03-01] MEDS ORDERED: BUPIVACAINE/EPINEPHRINE 0.5% MPF 1:200,000 30 ML VIAL ONE (12:32)
[2017-03-01] MEDS ORDERED: NEOSTIGMINE METHYLSULFATE 5 MG/5 ML SYR ONE (13:08)
[2017-03-01] MEDS ORDERED: GLYCOPYRROLATE INJ 0.2 MG/ML VIAL ONE (13:08)
[2017-03-01] MEDS ORDERED: LABETALOL HCL IV 5 MG/ML 20ML IV ONE (13:10)
[2017-03-01] MEDS ORDERED: HYDROmorphone INJ 1 MG/ML SYR IV PRN (13:45)
--- NOTE | 2017-03-01 13:46 | [facility] Operative Report ---
Operative Report Operative Date Mar 01, 2017. Pre-Operative Diagnosis Acute cholecystitis and pancreatitis Post-Operative Diagnosis gallstone pancreatitis; skin lesions X 2. chest wall skin lesions X 2 Procedure(s) Performed lap idalmis excsion 2 skin lesions 1 cm each , chest wall Surgeon Dr. Anguiano Manager Inside Surgeon(s) Luis A Velasquez PA-C Estimated Blood Loss 10 mL Findings 1. mildly inflammed gallbladder with stones 2. moderate sized hiatal hernia 3. skin lesions chest wall times 2. 1 cm each Specimens A: Gall bladder and contents B: Chest wall skin lesions Anesthesia General Complication(s) None Disposition Recovery Room / PACU I attest to the content of the Intraoperative Record and any orders documented therein. Any exceptions are noted below.
[2017-03-01] MEDS: HYDROmorphone INJ 1 MG/ML SYR IV PRN ×5 (14:02→14:30)
[2017-03-01] MEDS ORDERED: LABETALOL HCL IV 5 MG/ML 20ML IV PRN (14:15)
[2017-03-01] MEDS ORDERED: ATROPINE SULFATE 0.1 MG/ML 5ML SYR IV PRN (14:15)
[2017-03-01] MEDS ORDERED: PROMETHAZINE HCL INJ 12.5 MG in SODIUM CHLORIDE 0.9% 50ML 50 ML IV PRN (14:15)
[2017-03-01] MEDS ORDERED: NALOXONE HCL 0.4 MG/1 ML VIAL/CARP IV PRN (14:15)
[2017-03-01] MEDS ORDERED: EpHEDrine SULFATE INJ 50 MG/ML AMP IV PRN (14:15)
[2017-03-01] MEDS ORDERED: ONDANSETRON INJ 2 MG/ML 2 ML VIAL IV PRN (14:15)
[2017-03-01] MEDS ORDERED: FLUMAZENIL 0.1 MG/1 ML 10 ML VIAL IV PRN (14:15)
--- NOTE | 2017-03-01 14:41 | OPERATIVE REPORT ---
DATE OF OPERATION: 03/01/2017 PREOPERATIVE DIAGNOSES: 1. Gallstone pancreatitis. 2. Symptomatic chest wall skin lesions x2. POSTOPERATIVE DIAGNOSES: Same with moderate sized hiatal hernia. PROCEDURES: 1. Laparoscopic cholecystectomy. 2. Excision of chest wall skin lesions x2, 1 cm each. SURGEON: Dr. Anguiano. SURGICAL SUPERVISOR: Kristian Velasquez PA-C. ESTIMATED BLOOD LOSS: 10 mL. COMPLICATIONS: No immediate. ANESTHESIA: General. The patient tolerated the procedure well. OPERATION AND FINDINGS: OPERATIVE NOTE: After informed consent was obtained, the patient was taken to the operating suite and placed in supine position. After successful intubation, the abdomen was sterilely prepped and draped in usual fashion. A supraumbilical incision was made with an 11 blade scalpel and carried down through the soft tissue using electrocautery. The anterior rectus fascia was opened using electrocautery and two #0 Vicryl stay sutures were placed. Peritoneum was entered using blunt finger penetration and a finger sweep was performed. A 12 mm Jimbo trocar was placed and the abdomen was insufflated to 18 mmHg. Laparoscope was inserted and the abdomen examined 360 degrees. A subxiphoid 5 mm port and 2 right upper quadrant 5 mm ports were all placed again under direct vision. The patient was placed in reverse Trendelenburg position slightly airplaned to the left. We did look around. There was a small, probably 3-4 cm hiatal hernia without incarceration. Gallbladder was slightly thickened. We were able to grasp it and elevate it superiorly and laterally. A [place] dissector was used to take down some adhesions from the neck of the gallbladder. There was an anterior cystic artery which we skeletonized initially, clip twice proximally and once distally and transected it. We then dissected free the cystic duct. We clamped it twice proximally and once distally as well and transected it. The gallbladder was then removed from the gallbladder fossa using electrocautery. It was removed intact and placed into an EndoCatch bag. Any small bleeding points on the fossa were controlled using electrocautery. Thorough irrigation of the right upper quadrant was performed. At the end of the procedure, there was adequate hemostasis and no evidence of a bile leak. Quick look around the abdomen showed no other gross visible abnormality. The gallbladder was placed into an EndoCatch bag and removed from the camera port site. The trocars were all removed and the abdomen was desufflated. The fascia of the camera port was closed using 0 Vicryl in a [id number] fashion. All the wounds were irrigated and closed using 4-0 Monocryl. Marcaine 0.5% was injected around them for postoperative analgesia and skin glue used as a dressing. We then took down the drapes and then sterilely prepped and draped the 2 chest wall lesions with Betadine solution and toweled them off with sterile drapes. We did use a 10 blade scalpel to do almost shave biopsy. We did go through the dermis itself. Both of the specimens were passed off to be sent to pathology. Simple interrupted 4-0 nylon sutures were used to close the skin. Sterile dressing was applied. The patient was then extubated and transferred to recovery in stable condition. I attest to the content of the Intraoperative Record and any orders documented therein. Any exception s are noted below.
--- NOTE | 2017-03-01 14:57 | Anesthesiology Progress Note ---
Anesthesia Post Op Note Date & Time Mar 01, 2017 at 14:57 Vital Signs Pain Intensity: 9.0 Vital Signs Past 12 Hours Date Time Temp Pulse Resp B/P (MAP) Pulse Ox O2 Delivery O2 Flow Rate FiO2 03/01/17 14:55 36.7 03/01/17 14:51 152/77 03/01/17 14:49 75 14 93 03/01/17 14:49 73 14 03/01/17 14:46 160/71 03/01/17 14:44 78 16 95 03/01/17 14:44 76 16 03/01/17 14:43 80 15 92 03/01/17 14:43 80 15 03/01/17 14:41 161/86 03/01/17 14:38 82 18 94 03/01/17 14:38 80 18 03/01/17 14:36 167/80 03/01/17 14:33 73 22 03/01/17 14:33 77 22 94 03/01/17 14:31 159/80 03/01/17 14:28 73 16 03/01/17 14:28 74 16 92 03/01/17 14:27 145/71 03/01/17 14:23 76 18 93 03/01/17 14:23 77 18 03/01/17 14:22 152/71 03/01/17 14:18 79 14 03/01/17 14:18 78 14 93 03/01/17 14:17 90 18 95 03/01/17 14:17 88 18 03/01/17 14:16 168/99 03/01/17 14:12 77 15 03/01/17 14:12 80 15 96 03/01/17 14:11 162/78 03/01/17 14:07 80 14 03/01/17 14:07 80 14 96 03/01/17 14:06 161/80 03/01/17 14:02 77 15 03/01/17 14:02 77 15 97 03/01/17 14:01 167/72 03/01/17 13:57 78 15 97 03/01/17 13:57 78 15 03/01/17 13:56 158/74 03/01/17 13:54 83 16 03/01/17 13:54 83 16 98 03/01/17 13:51 152/79 03/01/17 13:49 85 21 98 03/01/17 13:49 85 21 03/01/17 13:46 150/73 03/01/17 13:45 156/74 03/01/17 13:44 36.0 87 22 156/76 95 Mask 5 03/01/17 08:00 Room Air 03/01/17 07:46 37.0 78 16 128/70 (89) 91 Room Air Notes Mental Status: alert / awake / arousable, participated in evaluation Pt Amnestic to Procedure: Yes Nausea / Vomiting: adequately controlled Pain: adequately controlled Airway Patency, RR, SpO2: stable & adequate BP & HR: stable & adequate Hydration State: stable & adequate Anesthetic Complications: no major complications apparent
[2017-03-01 16:00] VITALS: O2SAT 93
[2017-03-01 16:15] VITALS: BP 133/72; PULSE 72; TEMP 36.9; O2SAT 94
[2017-03-01 18:15] VITALS: BP 142/69; PULSE 79; TEMP 36.9; O2SAT 90
[2017-03-01 23:28] VITALS: BP 138/77; PULSE 79; TEMP 37; O2SAT 91
[2017-03-02] MEDS: LACTATED RINGER'S 1000ML 1,000 ML IV SCH ×2 (04:41→14:22)
[2017-03-02] MEDS: AMPICILLIN/SULBACTAM SOD INJ 1,500 MG in SODIUM CHLORIDE 0.9% 100ML 100 ML IV SCH ×3 (05:36→17:41)
[2017-03-02 05:58] LABS: BASO % 0.2 %; BASO ABS # 0.02 K/uL (0-0.2); COMPLETE YES; EOS % 0.9 %; HEMATOCRIT 32.1 % (37-47); IG% 0.2 %; LYMPH ABS # 1.94 K/uL (1.2-3.4); MEAN CELL VOLUME 82.5 fL (80-100); MEAN CORPUSCULAR HEMOGLOBIN 27.5 pg (25-34); MEAN CORPUSCULAR HGB CONC 33.3 g/dl (32-36); MEAN PLATELET VOLUME 10.5 fL (7.4-10.4); MONO % 6.9 %; NEUT % 67.8 %; PLATELET COUNT 267 K/uL (130-400); RED BLOOD COUNT 3.89 M/uL (4.2-5.4); WHITE BLOOD COUNT 8.09 K/uL (4.8-10.8)
[2017-03-02 06:35] LABS: BUN/CREATININE RATIO 12.5 (10-20); CALCIUM 8.5 mg/dl (8.5-10.1); CREATININE 0.72 mg/dl (0.60-1.20); POTASSIUM 3.6 mmol/L (3.5-5.1)
[2017-03-02 06:37] LABS: ALB/GLOB RATIO 0.6 (0.9-2)
[2017-03-02 07:12] VITALS: BP 128/72; PULSE 68; TEMP 36.9; O2SAT 93
[2017-03-02] MEDS: LOSARTAN POTASSIUM 50 MG TAB PO SCH (08:44)
[2017-03-02] MEDS: ATORVASTATIN 10 MG TAB PO SCH (08:44)
--- NOTE | 2017-03-02 09:08 | Surgery Progress Note ---
Surgery Progress Note Date of Service Mar 02, 2017. Subjective Post OP Day: 1 doing ok now. had " a rough night last night but doing better now" reagan some breakfast has really only had tylenol for pain according to her. Objective Vital Signs: Date Time Temp Pulse Resp B/P (MAP) Pulse Ox O2 Delivery O2 Flow Rate FiO2 03/02/17 07:12 36.9 68 16 128/72 (90) 93 Room Air 03/02/17 00:00 Room Air 03/01/17 23:28 37.0 79 18 138/77 (97) 91 Room Air 91.0 03/01/17 18:15 36.9 79 18 142/69 (93) 90 Room Air 03/01/17 16:15 36.9 72 18 133/72 (92) 94 Nasal Cannula 3.0 03/01/17 16:00 93 Nasal Cannula 3.0 Mask 03/01/17 14:57 65 16 03/01/17 14:57 69 16 93 03/01/17 14:56 151/76 03/01/17 14:55 36.7 03/01/17 14:52 79 21 92 03/01/17 14:52 81 21 03/01/17 14:51 152/77 03/01/17 14:49 75 14 93 03/01/17 14:49 73 14 03/01/17 14:46 160/71 03/01/17 14:44 78 16 95 03/01/17 14:44 76 16 03/01/17 14:43 80 15 92 03/01/17 14:43 80 15 03/01/17 14:41 161/86 03/01/17 14:38 82 18 94 03/01/17 14:38 80 18 03/01/17 14:36 167/80 03/01/17 14:33 73 22 03/01/17 14:33 77 22 94 03/01/17 14:31 159/80 03/01/17 14:28 73 16 03/01/17 14:28 74 16 92 03/01/17 14:27 145/71 03/01/17 14:23 76 18 93 03/01/17 14:23 77 18 03/01/17 14:22 152/71 03/01/17 14:18 79 14 03/01/17 14:18 78 14 93 03/01/17 14:17 90 18 95 03/01/17 14:17 88 18 03/01/17 14:16 168/99 03/01/17 14:12 77 15 03/01/17 14:12 80 15 96 03/01/17 14:11 162/78 03/01/17 14:07 80 14 03/01/17 14:07 80 14 96 03/01/17 14:06 161/80 03/01/17 14:02 77 15 03/01/17 14:02 77 15 97 03/01/17 14:01 167/72 03/01/17 13:57 78 15 97 03/01/17 13:57 78 15 03/01/17 13:56 158/74 03/01/17 13:54 83 16 03/01/17 13:54 83 16 98 03/01/17 13:51 152/79 03/01/17 13:49 85 21 98 03/01/17 13:49 85 21 03/01/17 13:46 150/73 03/01/17 13:45 156/74 03/01/17 13:44 36.0 87 22 156/76 95 Mask 5 General Appearance: no apparent distress Abdomen: non distended, soft, + pertinent finding (expected tenderness) Incision(s): clean, dry, intact Laboratory Results: Results Past 24 Hours Test 03/02/17 05:35 Range/Units White Blood Count 8.09 4.8-10.8 K/uL Red Blood Count 3.89 4.2-5.4 M/uL Hemoglobin 10.7 12.0-16.0 g/dL Hematocrit 32.1 37-47 % Mean Corpuscular Volume 82.5 80-100 fL Mean Corpuscular Hemoglobin 27.5 25-34 pg Mean Corpuscular Hemoglobin Concent 33.3 32-36 g/dl Platelet Count 267 130-400 K/uL Mean Platelet Volume 10.5 7.4-10.4 fL Neutrophils (%) (Auto) 67.8 % Lymphocytes (%) (Auto) 24.0 % Monocytes (%) (Auto) 6.9 % Eosinophils (%) (Auto) 0.9 % Basophils (%) (Auto) 0.2 % Neutrophils # (Auto) 5.48 1.4-6.5 K/uL Lymphocytes # (Auto) 1.94 1.2-3.4 K/uL Monocytes # (Auto) 0.56 0.11-0.59 K/uL Eosinophils # (Auto) 0.07 0-0.5 K/uL Basophils # (Auto) 0.02 0-0.2 K/uL RDW Standard Deviation 43.7 36.4-46.3 fL RDW Coefficient of Variation 14.4 11.5-14.5 % Immature Granulocyte % (Auto) 0.2 % Immature Granulocyte # (Auto) 0.02 0.00-0.02 K/uL Sodium Level 143 136-145 mmol/L Potassium Level 3.6 3.5-5.1 mmol/L Chloride Level 107 98-107 mmol/L Carbon Dioxide Level 27 21-32 mmol/L Anion Gap 9.0 3-11 mmol/L Blood Urea Nitrogen 9 7-18 mg/dl Creatinine 0.72 0.60-1.20 mg/dl Est Creatinine Clear Calc Drug Dose 79.8 ml/min Estimated GFR () 99.7 Estimated GFR (Non- 86.1 BUN/Creatinine Ratio 12.5 10-20 Random Glucose 92 70-99 mg/dl Calcium Level 8.5 8.5-10.1 mg/dl Total Bilirubin 0.5 0.2-1 mg/dl Aspartate Amino Transf (AST/SGOT) 63 15-37 U/L Alanine Aminotransferase (ALT/SGPT) 308 12-78 U/L Alkaline Phosphatase 488 45-117 U/L Total Protein 6.0 6.4-8.2 gm/dl Albumin 2.3 3.4-5.0 gm/dl Globulin 3.7 2.5-4.0 gm/dl Albumin/Globulin Ratio 0.6 0.9-2 Lipase 63 73-393 U/L Assessment & Plan POD #1 doing well labs reviewed ok for d/c today if ok with primary service. post op instructions given.
--- NOTE | 2017-03-02 09:24 | Discharge Instructions ---
Discharge Instructions Date of Service Mar 02, 2017. Admission Reason for Admission: Acute Cholecystitis, Acute Pancreatitis, Pancreati Discharge Discharge Diagnosis / Problem: Acute Cholecystitis, Acute Pancreatitis Discharge Goals Goal(s): Decrease discomfort, Improve function Activity Recommendations Activity Limitations: as noted below Lifting Limitations: no more than 10 pounds Exercise/Sports Limitations: until after follow-up appointment May Resume Sexual Activity: after follow-up appointment Shower/Bathe: tomorrow Driving or Machine Use: resume 1 day after discharge . Instructions / Follow-Up Instructions / Follow-Up No lifting over 10lbs until you return to see Dr. Anguiano in the office. Please follow-up with Dr. Anguiano in the office in 1-2 weeks. Please call the office at [phone] to make an appointment. Our office is located at [address] [place] [address], [place] [address]. If you have any questions or concerns, please call the office at [phone]. Current Hospital Diet Patient's current hospital diet: Regular Diet Discharge Diet Recommended Diet: Regular Diet Procedures Procedures Performed: Laparoscopic Cholecystectomy Pending Studies Studies pending at discharge: no Medical Emergencies . Who to Call and When: Medical Emergencies: If at any time you feel your situation is an emergency, please call 911 immediately. . Non-Emergent Contact Non-Emergency issues call your: Primary Care Provider, Surgeon Call Non-Emergent contact if: temperature is above 101.5, your pain is not controlled, wound has increased drainage, wound has increased redness . "Provider Documentation" section prepared by Kriss Foster. . VTE Core Measure Inpt VTE Proph given/why not?: SCD's [place] Drug Monitoring Program Search Results: patient reviewed within database, no issues identified
--- NOTE | 2017-03-02 09:43 | Discharge Instructions ---
Discharge Instructions Date of Service Mar 02, 2017. Admission Reason for Admission: Acute Cholecystitis, Acute Pancreatitis, Pancreati Discharge Discharge Diagnosis / Problem: Acute cholecystitis, pancreatitis Discharge Goals Goal(s): Decrease discomfort, Improve function, Increase independence, Improve disease control Activity Recommendations Activity Limitations: per Instructions/Follow-up section Lifting Limitations: no more than 10 pounds, gradually increase as tolerated Exercise/Sports Limitations: rest today, gradually increase as tolerated May Resume Sexual Activity: when tolerated Shower/Bathe: tomorrow Driving or Machine Use: DO NOT DRIVE WHILE TAKING NARCOTICS. You may resume driving 24 hours after your last narcotic pain pill. . Instructions / Follow-Up Instructions / Follow-Up You were admitted to [facility] with Acute cholecystitis and gallstone pancreatitis. During your stay here you were treated with intravenous fluids, antibiotics and underwent an ERCP where 3 gallstones were removed. You then underwent a laproscopic cholecystectomy (gallbladder removal). Your labwork improved, pain improved, and you were stable for discharge to home. Pain control: - You have been given a prescription for [place] 5-325 mg tablets, this is a narcotic. - Use tylenol 650 mg every 4 hours around the clock for 2 days to help with pain. You may use over the counter ibuprofen or naproxen daily for pain if needed with food. - Continue taking a bowel regimen while on narcotics([place]) to help keep your bowels moving: - Take dulcolax 5 mg tab once daily and miralax 17 gm (packet of powder) daily in any drink of your choice Follow up with your family physician within 1 week. Current Hospital Diet Patient's current hospital diet: Regular Diet Discharge Diet Recommended Diet: Regular Diet Procedures Procedures Performed: Laparoscopic Cholecystectomy Pending Studies Studies pending at discharge: no Medical Emergencies . Who to Call and When: Medical Emergencies: If at any time you feel your situation is an emergency, please call 911 immediately. . Non-Emergent Contact Non-Emergency issues call your: Primary Care Provider Call Non-Emergent contact if: you have a fever, temperature is above 100.5, your pain is not controlled, your pain is worsening, your pain is unusual for you, your pain is concerning you, wound has increased drainage, wound has increased redness, wound has increased pain, you have any medication questions . Past History Medical & Surgical History: (1) Acute pancreatitis (2) Acute cholecystitis (3) Transaminitis (4) Hyperbilirubinemia . "Provider Documentation" section prepared by Melissa Hill. . VTE Core Measure Inpt VTE Proph given/why not?: Georgi Jackman, SCD's
[2017-03-02] MEDS ORDERED: POLY335019 PO (09:45)
[2017-03-02] MEDS ORDERED: BISA-16 PO (09:46)
[2017-03-02] MEDS: ACETAMINOPHEN 325 MG TAB PO PRN ×2 (10:16)
[2017-03-02] MEDS ORDERED: OXYCODONE/ACETAMINOPHEN 5-325 TAB PO ONE (11:30)
--- NOTE | 2017-03-02 12:42 | Hospitalist Progress Note ---
Hospitalist Progress Note Date of Service Mar 02, 2017. (Anjana Hill PA-C) Subjective Pt evaluation today including: conversation w/ patient, physical exam, chart review, lab review, review of studies Pain: Moderate, abdominal pain PO Intake: good Voiding: no voiding problems The patient was seen and examined this morning. Patient reports feeling a little better today than she was yesterday. She reports that she still having incisional pain is quite slender abdomen. She tolerated a clear liquid diet and then was given a regular breakfast tray and ate half of it. She reports still not feeling 100%. She has been walking about the room without much difficulty. She is passing gas but has not yet had a bowel movement. Additional Comments: ROS: Constitutional: No fever, sweats or chills Eyes: No diplopia, no worsening or blurred vision ENT: normal hearing, no trouble swallowing Respiratory: No cough, sputum, dyspnea at rest or on exertion Cardiovascular: No chest pain, tightness or palpitations Abdomen: See HPI Musculoskeletal: No joint pain, calf pain, swelling Neurologic: No weakness, numbness/tingling, or balance problems Psychiatric: No anxiety or depression Skin: No rash or itch (Anjana Hill PA-C) Objective Vital Signs Date Time Temp Pulse Resp B/P (MAP) Pulse Ox O2 Delivery O2 Flow Rate FiO2 03/02/17 08:00 Room Air 03/02/17 07:12 36.9 68 16 128/72 (90) 93 Room Air 03/02/17 00:00 Room Air 03/01/17 23:28 37.0 79 18 138/77 (97) 91 Room Air 91.0 03/01/17 18:15 36.9 79 18 142/69 (93) 90 Room Air 03/01/17 16:15 36.9 72 18 133/72 (92) 94 Nasal Cannula 3.0 03/01/17 16:00 93 Nasal Cannula 3.0 Mask 03/01/17 14:57 65 16 03/01/17 14:57 69 16 93 03/01/17 14:56 151/76 03/01/17 14:55 36.7 03/01/17 14:52 79 21 92 03/01/17 14:52 81 21 03/01/17 14:51 152/77 17 14:49 75 14 93 1417 14:49 73 14 1417 14:46 160/71 14/17 14:44 78 16 95 1417 14:44 76 16 14/17 14:43 80 15 92 14/17 14:43 80 15 1417 14:41 161/86 14 14:38 82 18 94 1417 14:38 80 18 1417 14:36 167/80 1417 14:33 73 22 14/17 14:33 77 22 94 1417 14:31 159/80 03/01/17 14:28 73 16 03/01/17 14:28 74 16 92 14 14:27 145/71 17 14:23 76 18 93 03/01/17 14:23 77 18 03/01/17 14:22 152/71 03/01/17 14:18 79 14 03/01/17 14:18 78 14 93 03/01/17 14:17 90 18 95 03/01/17 14:17 88 18 03/01/17 14:16 168/99 03/01/17 14:12 77 15 03/01/17 14:12 80 15 96 03/01/17 14:11 162/78 17 14:07 80 14 03/01/17 14:07 80 14 96 03/01/17 14:06 161/80 03/01/17 14:02 77 15 03/01/17 14:02 77 15 97 03/01/17 14:01 167/72 14/17 13:57 78 15 97 14/17 13:57 78 15 1417 13:56 158/74 14/17 13:54 83 16 14/17 13:54 83 16 98 14/17 13:51 152/79 1417 13:49 85 21 98 14/17 13:49 85 21 14/17 13:46 150/73 14/17 13:45 156/74 14/17 13:44 36.0 87 22 156/76 95 Mask 5 (Anjana Hill PA-C) Physical Exam Notes: General: awake, alert, NAD, appears anxious. Head: Normocephalic, atraumatic ENT: PERRL, EOMI, no pharyngeal exudate, mucous membranes moist Chest: Clear to auscultation, on room air, no adventitious breath sounds Cardiac: Regular rate and rhythm, no murmur, no JVD, normal peripheral pulses, good capillary refill Abdominal: Hypoactive bowel sounds, incisions x 4: two in the RUQ, one above the umbilicus and one in the RLQ, all appear intact, no signs of surrounding erythema. Soft, mildly tender to palpation, no rebound, guarding or tenderness Extremities: Normal inspection, no peripheral edema or erythema, calfs nontender to palpation Psych: Normal mood and affect, appears slightly anxious Neuro: AAO x 3, strength intact bilaterally and related 5/5, no motor deficits, speech is clear, no peripheral sensory deficits (Anjana Hill PA-C) Laboratory Results Last 24 Hours Test 03/02/17 05:35 White Blood Count 8.09 K/uL Red Blood Count 3.89 M/uL Hemoglobin 10.7 g/dL Hematocrit 32.1 % Mean Corpuscular Volume 82.5 fL Mean Corpuscular Hemoglobin 27.5 pg Mean Corpuscular Hemoglobin Concent 33.3 g/dl Platelet Count 267 K/uL Mean Platelet Volume 10.5 fL Neutrophils (%) (Auto) 67.8 % Lymphocytes (%) (Auto) 24.0 % Monocytes (%) (Auto) 6.9 % Eosinophils (%) (Auto) 0.9 % Basophils (%) (Auto) 0.2 % Neutrophils # (Auto) 5.48 K/uL Lymphocytes # (Auto) 1.94 K/uL Monocytes # (Auto) 0.56 K/uL Eosinophils # (Auto) 0.07 K/uL Basophils # (Auto) 0.02 K/uL RDW Standard Deviation 43.7 fL RDW Coefficient of Variation 14.4 % Immature Granulocyte % (Auto) 0.2 % Immature Granulocyte # (Auto) 0.02 K/uL Sodium Level 143 mmol/L Potassium Level 3.6 mmol/L Chloride Level 107 mmol/L Carbon Dioxide Level 27 mmol/L Anion Gap 9.0 mmol/L Blood Urea Nitrogen 9 mg/dl Creatinine 0.72 mg/dl Est Creatinine Clear Calc Drug Dose 79.8 ml/min Estimated GFR () 99.7 Estimated GFR (Non- 86.1 BUN/Creatinine Ratio 12.5 Random Glucose 92 mg/dl Calcium Level 8.5 mg/dl Total Bilirubin 0.5 mg/dl Aspartate Amino Transf (AST/SGOT) 63 U/L Alanine Aminotransferase (ALT/SGPT) 308 U/L Alkaline Phosphatase 488 U/L Total Protein 6.0 gm/dl Albumin 2.3 gm/dl Globulin 3.7 gm/dl Albumin/Globulin Ratio 0.6 Lipase 63 U/L (Anjana Hill PA-C) Assessment and Plan 66yo F with PMHx of hypertension, GERD presented to the ER with complaints of abdominal pain which started about 2 days ago. Abdominal pain has been intermittent for about a month now. Associated with nausea and vomiting. Found to have acute cholecystitis and pancreatitis. Acute cholecystitis and pancreatitis - GI and Gen surg consulted - on OR board today for cholecystectomy - Tolerating a regular diet, passing gas, no BM yet - Unasyn on board, [place] [address], significantly decreased at this point down to 60s. - Continue analgesia with Dilaudid 1 mg Q4H prn - ERCP completed: 3 soft green stones removed, sphincterotomy performed, 1 biliary stent placed in the CBD. Will need outpatient ERCP in 6 weeks to remove the stent. - Avoid aspirin and nonsteroidal anti-inflammatory medicines for 1 week. Hypertension: - Cont Losartan 10 mg Hyperlipidemia: - Cont atorvastatin 20 mg QAM DVT prophylaxis: -SCDs - Chemical anticoagulation currently held in anticipation of surgical procedure - patient is ambulatory CODE STATUS: Full code Disposition: From home, ERCP done with stent in place which will need removed in 6 weeks, likely discharge within 24 hours. (Anjana Hill PA-C) MATEO Physician Supervision Note: I interviewed and examined the patient. Discussed with Melissa Hill and agree with findings and plan as documented in the note. Any exceptions or clarifications are listed here: None pt with likely gall stone pancreatitis for ercp 02/28, biliary stent placed, cholecystectomy 03/01 doing well post op some flatus no stool vitals stable abd tenderness persists, less guarding , hypoactive bowel sounds, continue unasyn, still hypoacive bowel sounds s/p cholecystectomy, continue to observe as post op ileus resolves, did have some flatus (Yamil Finnegan M.D.) (Yamil Finnegan M.D.)
--- NOTE | 2017-03-02 12:51 | Discharge Summary ---
Discharge Summary Date of Service Mar 02, 2017. Discharge Summary Admission Date: Feb 27, 2017 at 06:42 Discharge Date: Mar 02, 2017 Discharge Disposition: Home Principal Diagnosis: acute pancreatitis, acute cholecystitis Problems/Secondary Diagnoses: Hypertension, GERD Procedures: ABDOMEN AND PELVIS CT WITHOUT CONTRAST 02/27/17 Acting and I psych FINDINGS: Moderate hiatus hernia. Bibasilar densities are nonspecific but favor atelectasis. No hepatic or splenic masses. Mild peripancreatic inflammatory change consistent with acute pancreatitis. There are 2 focal areas of increased density at the distal common bile duct which measure up to 8 mm. These are consistent with distal common bile duct stones. There is associated intra and extrahepatic bile duct dilatation with the common bile duct measuring up to 14 mm. The gallbladder is distended and there is mild gallbladder wall thickening. There is a small amount of pericholecystic fluid/inflammatory change. Probable small stones/sludge within the gallbladder. Mild thickening within the left adrenal gland. Small stone within the left kidney. Normal right kidney. No hydronephrosis. Normal bladder, uterus, and ovaries. No evidence for bowel obstruction. A few colonic diverticula. Normal appendix. IMPRESSION: 1. Distal common bile duct stones with associated intra and hepatic bile duct dilatation. 2. Mild acute pancreatitis. 3. There appear to be a few small stones/sludge within the gallbladder. The gallbladder to mildly distended and there is mild gallbladder wall thickening with pericholecystic inflammatory change/fluid. This may also represent an acute cholecystitis. ERCP 02/28/17 Impression: - The major papilla was on the rim of a diverticulum. - The entire main bile duct was dilated. - Biliary papillary stenosis, benign. - A sphincterotomy was performed. - The lower third of the main bile duct was successfully dilated to 8 mm. - Choledocholithiasis and cholangitis was found. Complete removal was accomplished by biliary sphincterotomy and balloon extraction. - One biliary stent was placed into the common bile duct. Recommendation: - Avoid aspirin and nonsteroidal anti-inflammatory medicines for 1 week. - Clear liquid diet today. - Observe patient's clinical course following today's ERCP with therapeutic intervention. - Repeat ERCP in 6 weeks to remove stent. - Patient under evaluation for cholecystectomy. Consultations: Gastroenterology Gen. surgery Medication Reconciliation New Medications: Bisacodyl (Dulcolax) 5 Mg Tab 1 TAB PO DAILY PRN for con for 30 Days, #30 TAB Hydrocodone/Acetaminophen 5MG/325MG ([place] 5MG/325MG) Tab 1-2 TABLETS PO Q4 PRN for Pain for 3 Days, #30 TAB Polyethylene Glycol 3350 (Miralax) 1 Pow Pow 17 GM PO DAILY PRN for Constipation for 30 Days, #510 GM Continued Medications: Atorvastatin (Lipitor) 10 Mg Tab 10 MG PO DAILY, TAB Losartan Potassium (Cozaar) 50 Mg Tab 50 MG PO DAILY, TAB Omeprazole (Prilosec) 40 Mg Cap 40 MG PO DAILY, CAP Discharge Exam Subjective Pt evaluation today including: conversation w/ patient, physical exam, chart review, lab review, review of studies Pain: Moderate, abdominal pain PO Intake: good Voiding: no voiding problems The patient was seen and examined this morning. Patient reports feeling a little better today than she was yesterday. She reports that she still having incisional pain is quite slender abdomen. She tolerated a clear liquid diet and then was given a regular breakfast tray and ate half of it. She reports still not feeling 100%. She has been walking about the room without much difficulty. She is passing gas but has not yet had a bowel movement. Additional Comments: ROS: Constitutional: No fever, sweats or chills Eyes: No diplopia, no worsening or blurred vision ENT: normal hearing, no trouble swallowing Respiratory: No cough, sputum, dyspnea at rest or on exertion Cardiovascular: No chest pain, tightness or palpitations Abdomen: See HPI Musculoskeletal: No joint pain, calf pain, swelling Neurologic: No weakness, numbness/tingling, or balance problems Psychiatric: No anxiety or depression Skin: No rash or itch Objective Vital Signs Date Time Temp Pulse Resp B/P (MAP) Pulse Ox O2 Delivery O2 Flow Rate FiO2 03/02/17 08:00 Room Air 03/02/17 07:12 36.9 68 16 128/72 (90) 93 Room Air 03/02/17 00:00 Room Air 03/01/17 23:28 37.0 79 18 138/77 (97) 91 Room Air 91.0 03/01/17 18:15 36.9 79 18 142/69 (93) 90 Room Air 03/01/17 16:15 36.9 72 18 133/72 (92) 94 Nasal Cannula 3.0 03/01/17 16:00 93 Nasal Cannula 3.0 Mask 03/01/17 14:57 65 16 14 14:57 69 16 93 1417 14:56 151/76 1417 14:55 36.7 1417 14:52 79 21 92 14/17 14:52 81 21 03/01/17 14:51 152/77 14/17 14:49 75 14 93 1417 14:49 73 14 14 14:46 160/71 14 14:44 78 16 95 14/17 14:44 76 16 03/01/17 14:43 80 15 92 14 14:43 80 15 14 14:41 161/86 03/01/17 14:38 82 18 94 1417 14:38 80 18 17 14:36 167/80 03/01/17 14:33 73 22 03/01/17 14:33 77 22 94 03/01/17 14:31 159/80 03/01/17 14:28 73 16 17 14:28 74 16 92 03/01/17 14:27 145/71 14 14:23 76 18 93 03/01/17 14:23 77 18 14 14:22 152/71 03/01/17 14:18 79 14 1417 14:18 78 14 93 03/01/17 14:17 90 18 95 03/01/17 14:17 88 18 03/01/17 14:16 168/99 1417 14:12 77 15 14/17 14:12 80 15 96 14/17 14:11 162/78 14/17 14:07 80 14 14/17 14:07 80 14 96 14/17 14:06 161/80 1417 14:02 77 15 14/17 14:02 77 15 97 14/17 14:01 167/72 14/17 13:57 78 15 97 14/17 13:57 78 15 14/17 13:56 158/74 14/17 13:54 83 16 14/17 13:54 83 16 98 14/17 13:51 152/79 6/14/17 13:49 85 21 98 03/01/17 13:49 85 21 03/01/17 13:46 150/73 03/01/17 13:45 156/74 03/01/17 13:44 36.0 87 22 156/76 95 Mask 5 Physical Exam Notes: General: awake, alert, NAD, appears anxious. Head: Normocephalic, atraumatic ENT: PERRL, EOMI, no pharyngeal exudate, mucous membranes moist Chest: Clear to auscultation, on room air, no adventitious breath sounds Cardiac: Regular rate and rhythm, no murmur, no JVD, normal peripheral pulses, good capillary refill Abdominal: Hypoactive bowel sounds, incisions x 4: two in the RUQ, one above the umbilicus and one in the RLQ, all appear intact, no signs of surrounding erythema. Soft, mildly tender to palpation, no rebound, guarding or tenderness Extremities: Normal inspection, no peripheral edema or erythema, calfs nontender to palpation Psych: Normal mood and affect, appears slightly anxious Neuro: AAO x 3, strength intact bilaterally and related 5/5, no motor deficits, speech is clear, no peripheral sensory deficits Hospital Course H&P per Sherri Sidhu MD, resident History of Present Illness Source: patient, spouse 66-year-old female with a past medical history of hypertension, GERD presented to the ER with complaints of abdominal pain which started about 2 days ago. She stated that her pain started Monday night, has been intermittent, 9 on 10 in severity. The pain is mainly in the mid abdominal area without any radiation. The patient stated that she has been experiencing intermittent abdominal pain for about a month now. Complains of nausea and several episodes of vomiting. Denies diarrhea, constipation, bright red bleeding per rectum or melena. Denies any fevers or chills. Denies any urinary complaints. Denies any chest pain, shortness of breath, palpitations, dizziness Physical Exam Vital Signs Date Time Temp Pulse Resp B/P (MAP) Pulse Ox O2 Delivery O2 Flow Rate FiO2 02/27/17 06:31 102 20 160/82 95 Room Air 02/27/17 05:53 101 18 163/88 94 Room Air 02/27/17 05:38 100 02/27/17 05:33 105 20 171/101 93 Room Air 02/27/17 05:10 36.5 112 18 169/94 98 Room Air General Appearance: WD/WN, + mild distress Head: normocephalic Eyes: normal inspection ENT: hearing grossly normal Neck: supple Respiratory/Chest: chest non-tender, lungs clear, normal breath sounds, no respiratory distress, no accessory muscle use Cardiovascular: regular rate, rhythm Abdomen/GI: normal bowel sounds, soft Back: normal inspection Neurologic/Psych: alert, normal mood/affect, oriented x 3 Skin: normal color Hospital course 66yo F with PMHx of hypertension, GERD presented to the ER with complaints of abdominal pain which started about 2 days ago. Abdominal pain has been intermittent for about a month now. Associated with nausea and vomiting. Found to have acute cholecystitis and pancreatitis. Acute cholecystitis and pancreatitis - GI and Gen surg consulted - ERCP completed on 02/28/17: 3 soft green stones removed, sphincterotomy performed, 1 biliary stent placed in the CBD. Will need outpatient ERCP in 6 weeks to remove the stent. - Cholecystectomy completed 02/1417 - Avoid aspirin and nonsteroidal anti-inflammatory medicines for 1 week. - underwent cholecystectomy on 03/01/17 - Tolerated a regular diet, passing gas, no BM yet - Unasyn on board, continue for now - no need to continue antibiotics at time [place] discharge. [place] [address], significantly decreased at this point down to 60s. - Continue analgesia with Dilaudid 1 mg Q4H prn Hypertension: - Cont Losartan 10 mg Hyperlipidemia: - Cont atorvastatin 20 mg QAM DVT prophylaxis: -SCDs - Chemical anticoagulation currently held in anticipation of surgical procedure - patient is ambulatory CODE STATUS: Full code Disposition: From home, ERCP done with stent in place which will need removed in 6 weeks Total Time Spent: Greater than 30 minutes This includes examination of the patient, discharge planning, medication reconciliation, and communication with other providers. Discharge Instructions Please refer to the electronic Patient Visit Report (Discharge Instructions) for additional information. Follow-Up Follow up with your Primary Care Provider within 1 week. Follow up with GI for stent removal in 4 weeks. Stent should be removed in 6 weeks. Additional Copies To Kimberlyn Granger PA-C
[2017-03-02] MEDS ORDERED: OXYCODONE/ACETAMINOPHEN 5-325 TAB PO PRN (15:00)
[2017-03-02 15:31] VITALS: BP 153/75; PULSE 78; TEMP 36.8; O2SAT 91
[2017-03-02 18:56] VITALS: BP 153/75; PULSE 78; TEMP 36.8; O2SAT 91
[2017-03-28] MEDS ORDERED: CZR50 PO (08:14)
[2017-03-28] MEDS ORDERED: OMEP40CA41 PO (08:14)
[2017-03-28] MEDS ORDERED: ATOR10TA82 PO (08:14)
== END 2017-03-02 20:05 | disposition home or self-care (01) | DRG 417 ==
LOC: C.EDB 05:01 → C.MS2W 06:42 → ENRESERV 07:16
PROVIDERS: ADMIT Family Medicine; ATTEND Internal Medicine
PROC: 0FC98ZZ Extirpation of Matter from Common Bile Duct, Via Natural or Artificial Opening Endoscopic (ICD-10-PCS; 2017-02-28)
PROC: 0F798DZ Dilation of Common Bile Duct with Intraluminal Device, Via Natural or Artificial Opening Endoscopic (ICD-10-PCS; 2017-02-28)
PROC: 0HB5XZZ Excision of Chest Skin, External Approach (ICD-10-PCS; principal; 2017-03-01 13:40)
PROC: 0FT44ZZ Resection of Gallbladder, Percutaneous Endoscopic Approach (ICD-10-PCS; principal; 2017-03-01 13:40)
DX: K80.00 Calculus of gallbladder with acute cholecystitis without obstruction (principal); K85.10 Biliary acute pancreatitis without necrosis or infection; L98.9 Disorder of the skin and subcutaneous tissue, unspecified; K44.9 Diaphragmatic hernia without obstruction or gangrene; I10 Essential (primary) hypertension; K21.9 Gastro-esophageal reflux disease without esophagitis; E78.5 Hyperlipidemia, unspecified; Z82.49 Family history of ischemic heart disease and other diseases of the circulatory system; Z83.3 Family history of diabetes mellitus; Z79.899 Other long term (current) drug therapy

== ENCOUNTER → 2017-04-07 | Day surgery (SDC) | payer OTHER ==
[2017-03-28 08:14] VITALS: Ht 170.2 cm; Wt 74.5 kg
[~2017-04-07] VITALS: Ht 170.2 cm; Wt 74.5 kg
[~2017-04-07] MED LIST: ATOR10TA88 PO; BUPIVACAINE 0.5 % 5 MG/1 ML MPF 30ML VIAL ONE; CEFAZOLIN 2000 MG/60 ML D5W IV SCH; CZR50 PO; FENTANYL CITRATE INJ 50 MCG/1 ML 2 ML VIAL ONE; LACTATED RINGER'S 1000ML 1,000 ML IV SCH; LIDOCAINE HCL 2% 2 ML VIAL (20MG/ML) ONE; MIDAZOLAM HCL 1 MG/ML 2ML VIAL ONE; OMEP40CA41 PO; ONDANSETRON INJ 2 MG/ML 2 ML VIAL IV PRN; PROPOFOL IV EMULSION 10 MG/ML 20 ML VIAL IV ONE; SODIUM CHLORIDE 0.9% 1000ML 1,000 ML IV SCH
--- NOTE | 2017-04-07 08:07 | History & Physical Bridge Note ---
H&P Re-Evaluation Bridge Note: I have examined the patient, reviewed the History & Physical and in the interval since the performance of the History & Physical I have noted the following changes of clinical significance: No changes noted. pt seen. has several other lesions she would like excised as well. 2 on lower back which are black with irregular borders. she also has a raised lesion on her right foot which is german in appearance possibly c/w BCC. so in total we will remove 7 lesions. 2 on her chest. 4 on her back and 1 on her left foot.
[2017-04-07 09:08] VITALS: BP 113/70; PULSE 79; TEMP 36.3; O2SAT 97
--- NOTE | 2017-04-07 09:08 | [facility] Operative Report ---
Operative Report Operative Date Apr 07, 2017. Pre-Operative Diagnosis Squamous Cell Cancer Chest Wall, Lesions x 4 of Back, Lesion of Right Foot Post-Operative Diagnosis same Procedure(s) Performed Chest Wall Re-excision Of Squamous Cell Cancer Chest Wall, Upper Back Excision Of Skin Lesions X 4, Excision of Skin Lesion Right Foot Surgeon Dr. Makenna Anguiano Follow Up Specialist Surgeon(s) Kriss Foster PA-C Estimated Blood Loss 5cc Findings skin lesions as noted Specimens A. Lower Back Lesion B. Mid Back Lesion C. Inferior Upper Back Lesion D. Superior Upper Back Lesion E. Lower Chest Wall Lesion F. Upper Chest Wall Lesion G. Right Foot Lesion Anesthesia MAC/marcaine Complication(s) None Disposition Recovery Room / PACU Description of Procedure After informed consent was obtained the patient was taken to the operating suite placed in a prone position. IV sedation was administered by anesthesia and titrated to effect. After adequate sedation we sterilely prepped and draped her entire back. I started with the lower back lesion. We used the same procedure essentially for all the skin lesions. I Used Marcaine with epinephrine to create a skin wheal under the visible lesion and then used a 15 blade scalpel to make an elliptical incision. I then used electrocautery to remove the lesion. We then closed it using 3-0 nylon in simple interrupted fashion. The lower back lesion measured 2.5 cm. We repeated this technique for a mid back lesion measuring 1 cm and upper back lesion that was 2 cm and an upper back lesion measuring 1.5 cm. I used 3-0 nylon for all of these. We then sterilely dressed them. We then rolled the patient onto her back. We sterilely prepped the right foot as well as the upper chest. Again I used Marcaine to infiltrate these areas create a skin wheal and a 15 blade scalpel to make an ellipse around them electrocautery to remove them in their entirety. I did use larger margins for the upper chest lesions for known skin cancers. I used 4-0 nylon for the chest lesion closures and 3-0 nylon for the foot closure. Again sterile dressings were applied. The patient was awakened and transferred recovery in stable condition I attest to the content of the Intraoperative Record and any orders documented therein. Any exceptions are noted below.
--- NOTE | 2017-04-07 09:13 | Discharge Instructions-SurgCtr ---
Discharge Instructions Date of Service Apr 07, 2017. Visit Reason for Visit: Squamous Cell Cancer Chest Wall Discharge Discharge Diagnosis / Problem: Squamous Cell Cancer Chest Wall Discharge Goals Goal(s): Decrease discomfort, Improve function, Learn about illness Activity Recommendations Activity Limitations: as noted below Lifting Limitations: no more than 10 pounds Exercise/Sports Limitations: until after follow-up appointment May Resume Sexual Activity: after follow-up appointment Shower/Bathe: tomorrow Driving or Machine Use: resume 1 day after discharge Anesthesia . Post Anesthesia Instructions: If you have had General Anesthesia or IV Sedation: * Do not drive today. * Resume driving when surgeon permits. * Do not make important decisions or sign legal documents today. * Call surgeon for: 1. Temperature elevations greater than 101 degrees F. 2. Uncontrollable pain. 3. Excessive bleeding. 4. Persistent nausea and vomiting. 5. Medication intolerance (nausea, vomiting or rash). * For nausea and vomiting use only clear liquids such as: tea, soda, bouillon until nausea subsides, then gradually increase diet as tolerated. * If you have any concerns or questions, call your surgeon's office. If physician is unavailable and it is an emergency, call 911 or go to the nearest emergency room. . Instructions / Follow-Up Instructions / Follow-Up Please follow-up with Dr. Anguiano in the office in 1 week for evaluation and suture removal. Please call the office at [phone] to make an appointment if you do not have one already. Diet Recommendations Home Diet: no limitations, resume previous diet Pending Studies Studies pending at discharge: yes List of pending studies: Pathology report. Medical Emergencies . Who to Call and When: Medical Emergencies: If at any time you feel your situation is an emergency, please call 911 immediately. . Non-Emergent Contact Non-Emergency issues call your: Primary Care Provider, Surgeon Call Non-Emergent contact if: temperature is above 101.5, your pain is not controlled, wound has increased drainage, wound has increased redness . . "Provider Documentation" section prepared by Kriss Foster. .
--- NOTE | 2017-04-07 09:51 | Anesthesia Progress Nt - [facility] ---
Anesthesia Post Op Note Date & Time Apr 07, 2017 at 09:51 Vital Signs Pain Intensity: 0 Vital Signs Past 12 Hours Date Time Temp Pulse Resp B/P (MAP) Pulse Ox O2 Delivery O2 Flow Rate FiO2 04/07/17 09:08 36.3 79 12 113/70 (84) 97 Room Air 04/07/17 07:32 36.6 80 18 145/72 (96) 100 Room Air Notes Mental Status: alert / awake / arousable, participated in evaluation Pt Amnestic to Procedure: Yes Nausea / Vomiting: adequately controlled Pain: adequately controlled Airway Patency, RR, SpO2: stable & adequate BP & HR: stable & adequate Hydration State: stable & adequate Anesthetic Complications: no major complications apparent
--- NOTE | 2017-04-13 21:36 | EDITING REQUIRED CODING QUERY ---
CODING QUERY To promote full compliance with coding requirements relating to patient care, provider participation is requested in all cases of thermospray operator uncertainty. Please assist us with the question(s) below: Coding Question(s): CAN YOU GIVE ME THE SIZE OF THE LESION EXCISED FROM: UPPER CHEST WALL 3 cm LOWER CHEST WALL 3 cm RIGHT FOOT 1 cm Physician's Response(s): Thank you Ly Escobar Principal Diagnosis: "_that condition established after study, to be chiefly responsible for occasioning the admission of the patient to the hospital for care." Co-Existing Principal Diagnosis: "_when two or more diagnoses equally meet the criteria for principal diagnosis as determined by the circumstances of admission, diagnostic work up, and/or therapy provided, and the Alphabetic Index, Tabular List, or another coding guideline does not provide sequencing direction, any one of the diagnoses may be sequenced first." "When the physician has documented what appears to be a current diagnosis in the body of the record, but has not included the diagnosis in the final diagnostic statement, the physician should be asked whether the diagnosis should be added." (Source Coding [facility] 2 QTR90. p3-4)
== END | disposition home or self-care (01) ==
LOC: X.SURG 07:16
PROVIDERS: ATTEND Surgery
DX: C44.529 Squamous cell carcinoma of skin of other part of trunk (principal); L82.1 Other seborrheic keratosis; D22.9 Melanocytic nevi, unspecified; L57.8 Other skin changes due to chronic exposure to nonionizing radiation; B07.9 Viral wart, unspecified; K81.9 Cholecystitis, unspecified; Z90.49 Acquired absence of other specified parts of digestive tract; K21.9 Gastro-esophageal reflux disease without esophagitis; I10 Essential (primary) hypertension; E78.5 Hyperlipidemia, unspecified

== ENCOUNTER 2017-05-12 07:37 | Day surgery (SDC) | payer OTHER ==
[2017-04-17 10:43] VITALS: BMI 25.0
[~2017-05-12] VITALS: Ht 170.2 cm; Wt 74.5 kg
[~2017-05-12 07:37] MED LIST changes: -BUPIVACAINE 0.5 % 5 MG/1 ML MPF 30ML VIAL ONE; -CEFAZOLIN 2000 MG/60 ML D5W IV SCH; -FENTANYL CITRATE INJ 50 MCG/1 ML 2 ML VIAL ONE; -LIDOCAINE HCL 2% 2 ML VIAL (20MG/ML) ONE; -MIDAZOLAM HCL 1 MG/ML 2ML VIAL ONE; -ONDANSETRON INJ 2 MG/ML 2 ML VIAL IV PRN; -PROPOFOL IV EMULSION 10 MG/ML 20 ML VIAL IV ONE; -SODIUM CHLORIDE 0.9% 1000ML 1,000 ML IV SCH
[2017-05-12] MEDS ORDERED: LACTATED RINGER'S 1000ML 1,000 ML IV ONE (08:01)
--- NOTE | 2017-05-12 08:03 | Endo History and Physical ---
History & Physical Date of Service: May 12, 2017. Chief Complaint: Biliary stent removal Referring Physician: History of Present Illness The patient presented 2 months ago with cholangitis. She underwent ERCP with gallstone extraction and biliary stent placement. She presents today for papillary stent removal and repeat cholangiogram to remove any retained gallstones. Past Medical History Hypertension GERD Hypercholesterolemia Past Surgical History Hx Cardiac Surgery: No Hx Abdominal Surgery: Yes ([facility]) Hx Post-Op Nausea and Vomiting: No Hx Cancer Surgery: Yes (CHEST WALL EXCISION OF SQAMOUS CELL LESION) Hx Thoracic Surgery: No Hx Orthopedic: No Hx Urinary Tract Surgery: No Social History Smoking Status: Never Smoker Hx Substance Use: No Hx Alcohol Use: Yes (OCCASIONALLY) Allergies Coded Allergies: No Known Allergies (Unverified , 05/12/17) Current Medications Reported Home Medications Medications Dose Route/Sig Max Daily Dose Days Date Category Lipitor (Atorvastatin Calcium) 10 Mg Tab 10 Mg PO HS 03/28/17 Reported Prilosec (Omeprazole) 40 Mg Cap 40 Mg PO QAM 03/28/17 Reported Losartan Potassium 50 Mg Tab 1 Tab PO QAM 03/28/17 Reported Vital Signs Weight (Kilograms): 74.5 Height (Feet): 5 Height (Inches): 7 Physical Exam General Appearance: no apparent distress Respiratory/Chest: Auscultation: breath sounds normal Cardiovascular: Heart Auscultation: RRR (range) Abdomen: Inspection & Palpation: soft (middle the night) Assessment and Plan Regular stent removal and cholangiogram. We've discussed the risks and benefits to include bleeding, infection, perforation, pancreatitis and failed cannulation.
[2017-05-12 08:07] VITALS: BP 151/71; PULSE 75; TEMP 36.7; O2SAT 99; Ht 170.2 cm; Wt 74.5 kg
[2017-05-12] MEDS ORDERED: INDOMETHACIN 50 MG SUPP PR SCH (08:15)
[2017-05-12] MEDS ORDERED: FENTANYL CITRATE INJ 50 MCG/1 ML 2 ML VIAL ONE (08:27)
[2017-05-12] MEDS ORDERED: MIDAZOLAM HCL 1 MG/ML 2ML VIAL ONE (08:27)
[2017-05-12] MEDS ORDERED: ONDANSETRON INJ 2 MG/ML 2 ML VIAL IV PRN ×2 (09:30→10:00)
[2017-05-12] MEDS ORDERED: EpHEDrine SULFATE INJ 50 MG/ML AMP IV PRN (09:30)
[2017-05-12] MEDS ORDERED: FENTANYL CITRATE INJ 50 MCG/1 ML 2 ML VIAL IV PRN (09:30)
[2017-05-12] MEDS ORDERED: ATROPINE SULFATE 0.1 MG/ML 5ML SYR IV PRN (09:30)
[2017-05-12 09:45] LABS: ALB/GLOB RATIO 0.8 (0.9-2); BUN/CREATININE RATIO 22.6 (10-20); CREATININE 0.81 mg/dl (0.60-1.20); POTASSIUM 3.8 mmol/L (3.5-5.1)
[2017-05-12] MEDS ORDERED: LARYING-O-JET KIT (LTA) ONE ×2 (09:53)
[2017-05-12] MEDS ORDERED: SUCCINYLCHOLINE CHLORIDE 20 MG/ML 10 ML VIAL IV ONE (09:53)
[2017-05-12] MEDS ORDERED: LIDOCAINE HCL 2% 2 ML VIAL (20MG/ML) ONE (09:53)
[2017-05-12] MEDS ORDERED: DEXAMETHASONE SOD INJ 4 MG/ML VIAL ONE (09:53)
[2017-05-12] MEDS ORDERED: ONDANSETRON INJ 2 MG/ML 2 ML VIAL ONE (09:53)
[2017-05-12] MEDS ORDERED: PROPOFOL IV EMULSION 10 MG/ML 20 ML VIAL IV ONE (09:53)
--- NOTE | 2017-05-12 09:53 | [facility] Post Operative Brief Note ---
Immediate Operative Summary Operative Date May 12, 2017. Pre-Operative Diagnosis Biliary stent removal Post-Operative Diagnosis Biliary stent removal/biliary sludge Procedure(s) Performed Endoscopic Retrograde Cholangiopancreatogram with Stent Removal Surgeon Dr. Denise Cancino Gang Supervisor Pipe Lines Surgeon(s) none Estimated Blood Loss 0cc Findings The biliary stent had migrated up into the biliary tree. The biliary stent was removed with a balloon and snare. The common bile duct was swept and sludge was removed. Specimens None Anesthesia Gen. Complication(s) None Disposition Recovery Room / PACU
--- NOTE | 2017-05-12 09:54 | Discharge Instructions ---
Endoscopy Patient Instructions Date / Procedure(s) Performed May 12, 2017. ERCP Allergy Information Coded Allergies: No Known Allergies (Unverified , 05/12/17) Discharge Date / Findings May 12, 2017. Migrated biliary stent Biliary stent removed Sludge in common bile duct Periampullary diverticulum Medication Instructions Reported Home Medications Medications Dose Route/Sig Max Daily Dose Days Date Category Lipitor (Atorvastatin Calcium) 10 Mg Tab 10 Mg PO HS 03/28/17 Reported Prilosec (Omeprazole) 40 Mg Cap 40 Mg PO QAM 03/28/17 Reported Losartan Potassium 50 Mg Tab 1 Tab PO QAM 03/28/17 Reported Provider Instructions Activity Restrictions - No exercising or heavy lifting for 24 hours. - Do not drink alcohol the day of the procedure. - Do not drive a car or operate machinery until the day after the procedure. - Do not make any important decisions or sign important papers in 24 hours after the procedure. Following Day: - Return to full activity which may include returning to work/school. Diet Clear liquid diet today Regular diet on 05/13/17 Treatment For Common After Affects For mild abdominal pain, bloating, or excessive gas: - Rest - Eat lightly - Lie on right side Follow-Up Information Follow-up with Dr. Cancino as needed Anesthesia Information What You Should Know You have had a procedure that required some medicine to reduce anxiety and discomfort. This treatment is called moderate sedation. After receiving the treatment, you may be sleepy, but you will be able to breathe on your own. The effects of the treatment may last for several hours. Follow these instructions along with Activity/Diet recommendations noted above: * Do NOT do anything where dizziness or clumsiness would be dangerous. * Rest quietly at home today, then you can be up and about tomorrow. * Have a responsible person stay with you the rest of today. * You may have had an I.V. today. If so, you may take the dressing off later today. Recommendations Call your doctor if: * Trouble breathing * Continuous vomiting for more than 24 hours * Temperature above 101 degrees * Severe abdominal pain or bloating * Pain not relieved by pain medicine ordered * There is increased drainage or redness from any incision * A large amount of rectal bleeding greater than 2-3 tablespoons. (If you had a polyp/s removed or have hemorrhoids, a small amount of blood - from the rectum is to be expected.) * You have any unanswered questions or concerns. IN THE EVENT OF A SERIOUS EMERGENCY, GO TO THE NEAREST EMERGENCY ROOM Your discharge instructions were prepared by provider Denise Cancino. Patient Instructions Signature Page Casi Benavides Patient (or Guardian) Signature/Date: I have read and understand the instructions given to me by my caregivers. Caregiver/RN/Doctor Signature/Date: The above-named patient and/or guardian has received patient instructions on this date. + Original Patient Signature Page (only) stays with chart. Please make copy for patient.
--- NOTE | 2017-05-12 09:58 | DIAGNOSTIC IMAGING REPORT ---
ERCP BILIARY DUCTAL CLINICAL HISTORY: ERCP. COMPARISON STUDY: CT of the abdomen and pelvis February 27, 2017 and fluoroscopic images from ERCP February 28, 2017. FLUOROSCOPY TIME: 1 minute and 24 seconds. FINDINGS: 16 fluoroscopic images of the right upper quadrant were obtained during ERCP. Images demonstrate cannulation of the common bile duct. Common bile duct stent was removed. Balloon sweep through the common bile duct was performed. There are cholecystectomy clips. IMPRESSION: Fluoroscopic images from ERCP, as described above. Electronically signed by: Aman Garibay M.D. 05/12/2017 9:56 AM Dictated Date/Time: 05/12/2017 9:46 AM
--- NOTE | 2017-05-12 10:14 | Anesthesiology Progress Note ---
Anesthesia Post Op Note Date & Time May 12, 2017 at 10:14 Vital Signs Pain Intensity: 1 Vital Signs Past 12 Hours Date Time Temp Pulse Resp B/P (MAP) Pulse Ox O2 Delivery O2 Flow Rate FiO2 05/12/17 09:55 133/67 05/12/17 09:54 73 19 100 05/12/17 09:54 73 19 05/12/17 09:51 130/112 05/12/17 09:49 77 16 130/99 99 05/12/17 09:49 77 16 05/12/17 09:49 36.0 77 20 130/99 (105) 100 Mask 10 05/12/17 08:07 36.7 75 18 151/71 (97) 99 Room Air Notes Mental Status: alert / awake / arousable, participated in evaluation Pt Amnestic to Procedure: Yes Nausea / Vomiting: adequately controlled Pain: adequately controlled Airway Patency, RR, SpO2: stable & adequate BP & HR: stable & adequate Hydration State: stable & adequate Anesthetic Complications: no major complications apparent
[2017-05-12] MEDS ORDERED: ROCURONIUM BROMIDE 10 MG/ML 5 ML VIAL IV ONE (10:19)
[2017-05-12 10:35] VITALS: BP 136/59; PULSE 63; TEMP 36.4; O2SAT 95
[2017-05-12 11:05] VITALS: BP 133/83; PULSE 69; O2SAT 96
[2017-05-12 11:35] VITALS: BP 144/68; PULSE 70; TEMP 36.5; O2SAT 97
--- NOTE | 2017-05-12 16:10 | GI REPORT ---
Procedure Date: 05/12/2017 9:05 AM Procedure: ERCP Indications: Stent removal Medicines: General Anesthesia, Indocin 100 mg [place] Complications: No immediate complications. Estimated blood loss: Minimal. Estimated Blood Loss: Estimated blood loss was minimal. Procedure: Pre-Anesthesia Assessment: - Prior to the procedure, a History and Physical was performed, and patient medications, allergies and sensitivities were reviewed. The patient's tolerance of previous anesthesia was reviewed. - The risks and benefits of the procedure and the sedation options and risks were discussed with the patient. All questions were answered and informed consent was obtained. - Patient identification and proposed procedure were verified prior to the procedure by the physician, the nurse and the musical instruments assembler. The procedure was verified in the procedure room. - Pre-procedure physical examination revealed no contraindications to sedation. - ASA Grade Assessment: II - A patient with mild systemic disease. - After reviewing the risks and benefits, the patient was deemed in satisfactory condition to undergo the procedure. - The anesthesia plan was to use general anesthesia. - Immediately prior to administration of medications, the patient was re-assessed for adequacy to receive sedatives. - The heart rate, respiratory rate, oxygen saturations, blood pressure, adequacy of pulmonary ventilation, and response to care were monitored throughout the procedure. - The physical status of the patient was re-assessed after the procedure. After obtaining informed consent, the scope was passed under direct vision. Throughout the procedure, the patient's blood pressure, pulse, and oxygen saturations were monitored continuously.The ERCP was accomplished without difficulty. The patient tolerated the procedure well. The Scope was introduced through the mouth, and advanced to the duodenum and used to inject contrast into the bile duct. Findings: A kitchen worker film of the abdomen was obtained. Surgical clips, consistent with previous cholecystectomy, were seen in the area of the right upper quadrant of the abdomen. One stent ending in the main bile duct was seen. The esophagus was successfully intubated under direct vision without detailed examination of the pharynx, larynx, and associated structures, and upper GI tract. The upper GI tract was grossly normal. One stent which had been placed through the major papilla into the biliary tree was no longer visible. It had migrated into the duct. A biliary sphincterotomy had been performed. The sphincterotomy appeared open. The major papilla was located entirely within a diverticulum. The bile duct was deeply cannulated with the short-nosed traction sphincterotome (Omni 35) and 0.035 in Acro[employer] guidewire. Contrast was injected. I personally interpreted the bile duct images. Contrast extended to the hepatic ducts. The main bile duct was diffusely dilated. The largest diameter was 10 mm. One stent was removed from the biliary tree using an extraction balloon and a snare during the first attempt. The biliary tree was then swept with a 15 mm balloon starting at the bifurcation. Sludge was swept from the duct. An occlusion cholangiogram showed no retained stones. The endoscope was withdrawn from the patient. Impression: - A previously placed stent had migrated into the biliary tree. - One stent was removed from the biliary tree. - The biliary tree was swept and sludge was found. Recommendation: - Discharge patient to home (ambulatory). - Clear liquid diet today. - Observe patient's clinical course following today's ERCP with therapeutic intervention. - Return to my office PRN. Denise Cancino D.O. Denise Cancino DO 05/12/2017 9:58:56 AM This report has been signed electronically. Note Initiated On: 05/12/2017 9:05 AM I attest to the content of the Intraoperative Record and orders documented therein, exceptions below
== END 2017-05-12 12:16 | disposition home or self-care (01) ==
LOC: C.ACU 07:37
PROVIDERS: ATTEND Internal Medicine Gastroenterology
DX: Z97.8 Presence of other specified devices (principal); K82.8 Other specified diseases of gallbladder; I10 Essential (primary) hypertension; E78.00 Pure hypercholesterolemia, unspecified; Z79.899 Other long term (current) drug therapy